=== PATIENT | female | born 1990 | race Caucasian/White ===

== ENCOUNTER 2020-10-18 13:22 | Emergency (ER) | payer OTHER, SELFPAY ==
[2020-10-18 13:45] VITALS: BP 104/65; PULSE 90; RESP 16; TEMP 36.3; O2SAT 100
--- NOTE | 2020-10-18 14:40 | ED.SKABFB ---
HPI - Skin/Abscess/Foreign Bdy General Chief complaint: Skin/Abscess/Foreign Body Stated complaint: Rash On Back Time Seen by Provider: 10/18/20 14:30 Source: patient and RN notes reviewed Mode of arrival: ambulatory Limitations: no limitations History of Present Illness HPI narrative: 30-year-old female presents concern with painful burning itchy rash to her left sided upper back. Reports symptoms started with pain 2 to 3 days ago and then the rash appeared. She denies any drainage from the area. She denies malaise,, fever, body aches. Denies intervention. Related Data Home Medications Medication Instructions Recorded Confirmed sumatriptan succinate [Imitrex] 100 mg PO ONCE 02/28/19 02/28/19 Allergies Allergy/AdvReac Type Severity Reaction Status Date / Time No Known Allergies Allergy Verified 02/28/19 13:56 Review of Systems Review of Systems: CONSTITUTIONAL: Denies malaise, chills, sweats, or fever. EYES: Denies visual changes, redness, or discharge. ENT: Denies rhinorrhea, congestion, sinus pain, otalgia or sore throat. CARDIOVASCULAR: Denies chest pain, palpitations, or edema. RESPIRATORY: Denies cough or dyspnea. SKIN: Denies rash or itching. MUSCULOSKELETAL: Denies myalgia. NEUROLOGIC: Denies numbness, weakness, or headache. All systems reviewed & are unremarkable except as noted in HPI and below PMFSH Past Medical History Medical History (Updated 10/18/20 @ 14:41 by Suyapa Garduno NP) Fibromyalgia Migraines Surgical History Surgical History (Updated 01/03/19 @ 21:45 by Claribel Goodwin) No history of previous surgery Social History Social History (Updated 01/03/19 @ 21:45 by Claribel Goodwin) Smoking status: Unknown if ever smoked Gender identity (if verbalized by the patient): Female Comments At time of signature, agree with nursing past medical, surgical, social and family history. There is no relevant family history pertinent to the presenting complaint Exam Narrative: GENERAL: Well-appearing, well-nourished, and in no acute distress. HEAD: Normocephalic, atraumatic. EYES: PERRLA, conjunctivae clear ENT: Mucous membranes moist. NECK: Supple. No lymphadenopathy CHEST: Speaks in full sentences no respiratory distress. HEART: Regular rate and rhythm. SKIN: Warm, dry. Zosteriform rash noted to the left upper back NEURO: Alert and oriented x3. PSYCH: Normal mood and affect Course Course Emergency Course: Patient is aware of diagnosis, understands and agrees to treatment plan. Anticipatory guidance given. Patient agrees to follow-up as directed and is aware of reasons to seek care at the emergency department. Portions of this record may have been created with voice recognition software Vital Signs Vital signs: Vital Signs Temperature 97.4 F L 10/18/20 13:45 Pulse Rate 90 10/18/20 13:45 Respiratory Rate 16 10/18/20 13:45 Blood Pressure 104/65 10/18/20 13:45 Pulse Oximetry 100 10/18/20 13:45 Temperature 97.4 F L 10/18/20 13:45 Pulse Rate 90 10/18/20 13:45 Respiratory Rate 16 10/18/20 13:45 Blood Pressure 104/65 10/18/20 13:45 Pulse Oximetry 100 10/18/20 13:45 Reviewed. MDM - Skin/Abscess/Foreign Bdy MDM Narrative Medical decision making narrative: Does not appear at this time to be erythema multiforme, bullous, SJS, TEN; no evidence at this time to suggest RMSF, endocarditis or Lyme disease; patient looks well, nontoxic and is tolerating oral intake; no neurologic signs or symptoms; no headache, photophobia or neck pain; afebrile; appropriate for initial outpatient treatment; discussed the importance of follow-up, patient agrees; question, viral exanthema, contact dermatitis, allergic dermatitis, eczema, urticaria, shingles. No soft palate or uvula edema, no tongue, lip edema or other mucosal involvement, no respiratory compromise, no stridor, no wheezing, no wheezing, no history of syncope, no hypotension, no nausea, vomiting, or diarrh
== END 2020-10-18 14:57 | disposition home or self-care (01) ==
PROVIDERS: Emergency Provider Nurse Practitioner; PCP Physician Assistant
DX: B02.9 Zoster without complications (principal)
CPT/HCPCS: 99213; G0463

== ENCOUNTER 2020-10-23 13:42 | Emergency (ER) | payer OTHER, SELFPAY ==
[2020-10-23 13:54] VITALS: BP 103/74; PULSE 75; RESP 16; TEMP 36.7; O2SAT 100
--- NOTE | 2020-10-23 14:47 | ED.GENADULT ---
HPI - General Adult General Chief complaint: Upper Respiratory Infection Stated complaint: sore throat Time Seen by Provider: 10/23/20 14:47 Source: patient and RN notes reviewed Mode of arrival: ambulatory Limitations: no limitations History of Present Illness HPI narrative: 30-year-old female presents with complaints of sore throat, cough, and congestion for 1 day. ?Ileana reports awakening with an increasing sore throat today. ?Ibuprofen today at 09:00 with little relief. ?No high fevers, drooling, neck or throat swelling. ?Pain is bilateral. Hurts to swallow. ?Exacerbation factors consist of eating and drinking. ?No rhinorrhea. ?Nasal congestion. ?No voice change. ?No nausea, vomiting, or abdominal pain. ?Tolerating liquids well. ?Denies chills, dyspnea, difficulty swallowing, jaw pain, dental pain, facial pain, foreign body sensation, and rash. ?No chest pain. ?LMP 10/03/20. ?Remains active. ?The patient reports she has not been diagnosed with COVID-19. The patient reports she is not waiting for the results of a COVID-19 lab test. ?The patient reports she does not have weakness, fatigue, or myalgia. The patient reports he does not have a worsening cough. ?The patient reports he does not have any loss of taste or smell and diarrhea. ?Denies recent traveling. ?Denies concerns for COVID-19 or exposures. ?At this time, the patient is not suspected of having COVID-19. Some parts of this dictation were generated by voice recognition software and may contain typographical and/or grammatical inaccuracies. Related Data Allergies Allergy/AdvReac Type Severity Reaction Status Date / Time No Known Allergies Allergy Verified 02/28/19 13:56 Review of Systems Review of Systems: CONSTITUTIONAL: Denies fever, chills, sweats. EYES: Denies visual changes, redness, discharge. ENT: Denies rhinorrhea, otalgia. Complains of sore throat, congestion. CARDIOVASCULAR: Denies chest pain, palpitations, edema. RESPIRATORY: Denies dyspnea, wheezing. Complaints of cough. GASTROINTESTINAL: Denies abdominal pain, nausea, vomiting, diarrhea. GENITOURINARY: Denies dysuria, hematuria, abnormal discharge. SKIN: Denies rash or itching. MUSCULOSKELETAL: Denies acute back pain, joint pain, or myalgia. NEUROLOGIC: Denies numbness or focal weakness. PSYCHIATRIC: Denies anxiety or depression. All systems reviewed & are unremarkable except as noted in HPI and below. [facility] Past Medical History Medical History Fibromyalgia Migraines Smoker Surgical History Surgical History (Updated 01/03/19 @ 21:45 by Claribel Goodwin) No history of previous surgery Family History Family History (Updated 10/24/20 @ 20:10 by JUANJO Shultz) Father Unknown family medical history Mother Alive and well Social History Social History (Updated 10/24/20 @ 20:11 by JUANJO Shultz) Years smoked: 1.5 Smoking status: Current every day smoker Tobacco type: cigarettes Second hand tobacco smoke exposure: No Alcohol intake: current Substance use: never Substance use type: does not use Living arrangements: with family Occupation/Education: occupation Gender identity (if verbalized by the patient): Female Sexual Orientation (if Verbalized by the Patient): Straight or Heterosexual Comments At time of signature, agree with the nurse past medical, surgical, social, and family history. There is no relevant family history pertinent to the presenting complaint. Exam Narrative: GENERAL: This is a well-nourished, well-developed patient, in no apparent distress. Speaks in full sentences without deficits and ambulates with steady gait without dyspnea. HEAD: Normocephalic, atraumatic. EYES: PERRL. Sclera clear/white. Vision is grossly intact. EARS: External ears normal, auditory canals clear and without drainage, RT TM normal without perforation. LT TM with moderate effusion, no erythema, bulging, tenderness, swelling, or drainage. Hearing myranda
== END 2020-10-23 15:18 | disposition home or self-care (01) ==
PROVIDERS: Emergency Provider Nurse Practitioner Family
DX: H74.8X2 Other specified disorders of left middle ear and mastoid (principal); J02.9 Acute pharyngitis, unspecified; F17.200 Nicotine dependence, unspecified, uncomplicated
CPT/HCPCS: 87081; 87880; 99213; G0463

== ENCOUNTER 2020-12-11 18:30 | Emergency (ER) | payer OTHER, SELFPAY ==
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
[2020-12-11 18:46] VITALS: BP 118/64; PULSE 98; RESP 17; TEMP 37.1; O2SAT 100
[2020-12-11] MEDS: IBUPROFEN 400 MG TABLET 800 MG PO (22:06)
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
[2020-12-11 23:40] VITALS: BP 116/62; PULSE 81; RESP 18; O2SAT 99
--- NOTE | 2020-12-12 00:58 | ECG_ITS ---
Measurements Intervals [place] Rate: 89 P: 71 MT: 134 QRS: 41 QRSD: 90 T: 55 QT: 349 QTc: 425 Interpretive Statements SINUS RHYTHM NORMAL ECG Electronically Signed On 12-12-2020 18:07:32 CDT by Leopoldo Medina D.O.
== END 2020-12-11 23:42 | disposition home or self-care (01) ==
PROVIDERS: Emergency Provider Emergency Medicine; PCP Physician Assistant
DX: S20.219A Contusion of unspecified front wall of thorax, initial encounter (principal); F17.210 Nicotine dependence, cigarettes, uncomplicated; V89.2XXA Person injured in unspecified motor-vehicle accident, traffic, initial encounter
CPT/HCPCS: 71046; 93005; 99283; A9270

== ENCOUNTER 2022-01-28 10:17 | Emergency (ER) | payer OTHER, SELFPAY ==
[2022-01-28 10:51] VITALS: BP 115/77; PULSE 81; RESP 18; TEMP 36.9; O2SAT 100
--- NOTE | 2022-01-28 11:42 | ED.URI ---
HPI - URI/Sore Throat General Chief Complaint: Upper Respiratory Infection Stated Complaint: Bodyaches, Headache, Vomiting Time Seen by Provider: 01/28/22 11:43 Source: patient and RN notes reviewed Mode of arrival: ambulatory Limitations: no limitations History of Present Illness HPI Narrative: 31-year-old fever presented for complaint of headache, body aches, sinus pressure/congestion, n/v, subjective fever/chills. Onset 3 days. Denies cough, sob, wheezing. Last emesis last night. Endorses sick contacts. Taking Tylenol and ibuprofen for symptoms. MD elicited complaint: cough Related Data Allergies Allergy/AdvReac Type Severity Reaction Status Date / Time No Known Allergies Allergy Verified 01/28/22 10:56 Review of Systems Review of Systems: ROS per HPI PMFSH Past Medical History Medical History Fibromyalgia Migraines Smoker Surgical History Surgical History No history of previous surgery Family History Family History Father Unknown family medical history Mother Alive and well Social History Social History Years smoked: 1.5 Smoking status: Current every day smoker Tobacco type: cigarettes Second hand tobacco smoke exposure: No Alcohol intake: current Substance use: never Substance use type: does not use Gender identity (if verbalized by the patient): Female Sexual Orientation (if Verbalized by the Patient): Straight or Heterosexual Exam Narrative: GENERAL: Ill-appearing, nontoxic EYES: PERRLA, conjunctivae clear ENT: Mucous membranes moist. TM pearly mccallum with dull light reflex bilaterally; no tragal tenderness. Oropharynx erythematous without lesions or exudate, no drooling, no hoarseness, no trismus, uvula midline. CHEST: Clear to auscultation, breath sounds equal. No wheezing, rhonchi, rales, or stridor HEART: Regular rate and rhythm. No murmur heard. SKIN: Warm, dry, no rash. NEURO: Alert and oriented x3. PSYCH: Normal mood and affect Course Course Emergency Course: Patient is aware of diagnosis, understands and agrees to treatment plan. Anticipatory guidance given. Patient agrees to follow-up as directed and is aware of reasons to seek care at the emergency department. Portions of this record may have been created with voice recognition software Level of Care: Express Care Visit Vital Signs Vital signs: Vital Signs Temperature 98.4 F 01/28/22 10:51 Pulse Rate 81 01/28/22 10:51 Respiratory Rate 18 01/28/22 10:51 Blood Pressure 115/77 01/28/22 10:51 Pulse Oximetry 100 01/28/22 10:51 Oxygen Delivery Room Air 01/28/22 10:51 Temperature 98.4 F 01/28/22 10:51 Pulse Rate 81 01/28/22 10:51 Respiratory Rate 18 01/28/22 10:51 Blood Pressure 115/77 01/28/22 10:51 Pulse Oximetry 100 01/28/22 10:51 Oxygen Delivery Room Air 01/28/22 10:51 reviewed MDM - URI/Sore Throat MDM Narrative Medical decision making narrative: flu positive, result reviewed with pt. Advised supportive measures and signs/symptoms to go to the ER. Pt is appropriate for outpt treatment and f/u. Differential Diagnosis Differential diagnosis: Likely upper respiratory infection, sinusitis and viral infection Discharge Plan Discharge Clinical Impression: Influenza Patient Disposition: Home, Self-Care Condition: Stable Instructions: Influenza (ED) Additional Instructions: Influenza positive You should avoid crowds until you are fever free for 24 hours without the use of fever reducing medications, or the symptoms are improved Rest. Drink plenty of fluids. Tylenol 1000mg every 8 hours as needed for pain/fever Recommend Flonase spray and Zyrtec (or Claritin/Lety) for sinus pressure/congestion over the counter Cough syrup may cause drowsiness; avoid driving or take it at
== END 2022-01-28 12:02 | disposition home or self-care (01) ==
PROVIDERS: Emergency Provider Nurse Practitioner Family; PCP Physician Assistant
DX: J11.1 Influenza due to unidentified influenza virus with other respiratory manifestations (principal); F17.210 Nicotine dependence, cigarettes, uncomplicated; Z20.822 Contact with and (suspected) exposure to COVID-19
CPT/HCPCS: 87426; 87804; 99213; C9803; G0463

== ENCOUNTER 2022-03-25 15:21 | Emergency (ER) | payer OTHER, SELFPAY ==
[2022-03-25 15:27] VITALS: BP 114/71; PULSE 80; RESP 18; TEMP 36.6; O2SAT 100
--- NOTE | 2022-03-25 15:33 | ED.URI ---
HPI - URI/Sore Throat General Chief Complaint: Upper Respiratory Infection Stated Complaint: Sore Throat Time Seen by Provider: 03/25/22 15:33 Source: patient Mode of arrival: ambulatory Limitations: no limitations History of Present Illness HPI Narrative: 31-year-old female presents with complaint of sore throat for 2 days. No other symptoms. Afebrile. Denies nausea vomiting diarrhea. All systems reviewed and negative except as noted above. Related Data Home Medications Medication Instructions Recorded Confirmed No Home Medications 03/25/22 03/25/22 Allergies Allergy/AdvReac Type Severity Reaction Status Date / Time No Known Allergies Allergy Verified 03/25/22 15:26 Review of Systems Review of Systems: CONSTITUTIONAL: Denies fever, chills, or sweats. EYES: Denies visual changes, redness, or discharge. ENT: Denies rhinorrhea, congestion . Reports sore throat. Denies otalgia. CARDIOVASCULAR: Denies chest pain, palpitations, or edema. RESPIRATORY: Denies cough or dyspnea. GASTROINTESTINAL: Denies abdominal pain, nausea, vomiting, or diarrhea. GENITOURINARY: Denies dysuria or hematuria. SKIN: Denies rash or itching. MUSCULOSKELETAL: Denies back pain, joint pain, or myalgia. NEUROLOGIC: Denies headache, numbness, or weakness. PSYCHIATRIC: Denies anxiety or depression. All other systems reviewed are negative, except as documented in HPI. [facility] Past Medical History Medical History Fibromyalgia Migraines Smoker Surgical History Surgical History No history of previous surgery Family History Family History Father Unknown family medical history Mother Alive and well Social History Social History Years smoked: 1.5 Smoking status: Current every day smoker Tobacco type: cigarettes Second hand tobacco smoke exposure: No Alcohol intake: current Substance use: never Substance use type: does not use Living arrangements: with family Occupation/Education: occupation Gender identity (if verbalized by the patient): Female Sexual Orientation (if Verbalized by the Patient): Straight or Heterosexual Comments At time of signature, agree with nursing past medical, surgical, social and family history. There is no relevant family history pertinent to the presenting complaint. Exam Narrative: GENERAL: This is a well-nourished, well-developed patient, in no apparent distress. HEAD: normocephalic, atraumatic. EYES: PERRL. Sclera clear/white. Vision is grossly intact. EARS: External ears normal, auditory canals clear and without drainage, TMs normal without perforation. Hearing grossly intact. NOSE: External nose normal with no obvious nasal discharge, nares without redness, no rhinorrhea. THROAT: Mucous membranes moist, posterior pharynx clear. NECK: Neck supple, non-tender without lymphadenopathy, masses or thyromegaly. CARDIOVASCULAR: Regular rate and rhythm without murmurs, gallops, or rubs. RESPIRATORY: Clear to auscultation. Breath sounds equal bilaterally. No wheezes, rales, or rhonchi. SKIN: warm, Dry, intact with no suspicious lesions or rash, good texture and turgor. NEURO: awake, alert, and oriented to person, place and time. There were no obvious focal neurologic abnormalities. EXTREMITIES: No joint tenderness, effusion, or edema noted. Course Course Level of Care: Express Care Visit Vital Signs Vital signs: Vital Signs Temperature 36.6 C 03/25/22 15:27 Pulse Rate 80 03/25/22 15:27 Respiratory Rate 18 03/25/22 15:27 Blood Pressure 114/71 03/25/22 15:27 Pulse Oximetry 100 03/25/22 15:27 Oxygen Delivery Room Air 03/25/22 15:27 Temperature 36.6 C 03/25/22 15:27 Pulse Rate 80 03/25/22 15:27 Respiratory Rate 18 03/25/22 15:27 Blood Pressure 114/71 03/25/22 15:27 Pul
== END 2022-03-25 16:03 | disposition home or self-care (01) ==
PROVIDERS: Emergency Provider Nurse Practitioner Family; PCP Physician Assistant
DX: J02.9 Acute pharyngitis, unspecified (principal); Z20.822 Contact with and (suspected) exposure to COVID-19; F17.210 Nicotine dependence, cigarettes, uncomplicated; M79.7 Fibromyalgia
CPT/HCPCS: 87081; 87426; 87880; 99213; C9803; G0463

== ENCOUNTER 2022-06-23 16:57 | Emergency (ER) | payer OTHER, SELFPAY ==
[2022-06-23 17:09] VITALS: BP 112/66; PULSE 88; RESP 16; TEMP 37.4; O2SAT 99
--- NOTE | 2022-06-23 17:18 | ED.URI ---
HPI - URI/Sore Throat General Chief Complaint: Upper Respiratory Infection Stated Complaint: Sore Throat/Headache Time Seen by Provider: 06/23/22 17:18 Source: patient Mode of arrival: ambulatory Limitations: no limitations History of Present Illness HPI Narrative: Patient is a 31-year-old female that presents with 3 days of congestion, headache, sore throat, cough, diarrhea. Has not taken anything for symptoms. Does not have any sick contacts. Denies any fever, ear pain, shortness of breath, nausea and vomiting. Related Data Allergies Allergy/AdvReac Type Severity Reaction Status Date / Time No Known Allergies Allergy Verified 06/23/22 17:27 Review of Systems Review of Systems: All systems reviewed & are unremarkable except as noted in HPI and below Constitutional: Constitutional: Denies body ache(s), Denies fever(s), Denies malaise and Denies weakness Eyes: Eyes: Denies loss of vision ENT: Denies otalgia, Reports headache(s), Reports nasal congestion, Denies sinus pain and Reports sore throat Cardiovascular: Cardiovascular: Denies chest pain, Denies irregular heart rhythm and Denies dyspnea Respiratory: Respiratory: Reports cough and Denies dyspnea Gastrointestinal: Gastrointestinal: Denies abdominal pain, Denies melena, Denies hematochezia, Denies diarrhea, Denies nausea and Denies vomiting Musculoskeletal: Musculoskeletal: Denies back pain, Denies myalgias and Denies arthralgias Integumentary/Breasts: Skin/Breast: Denies pruritus and Denies rash Neurologic: Denies headache(s), Denies loss of vision and Denies weakness Psychiatric: Psychiatric: Reports no additional psychiatric complaints [facility] Past Medical History Medical History Fibromyalgia Migraines Smoker Surgical History Surgical History No history of previous surgery Family History Family History Father Unknown family medical history Mother Alive and well Social History Social History Years smoked: 1.5 Smoking status: Current every day smoker Tobacco type: cigarettes Second hand tobacco smoke exposure: No Alcohol intake: current Substance use: never Substance use type: does not use Living arrangements: with family Occupation/Education: occupation Gender identity (if verbalized by the patient): Female Sexual Orientation (if Verbalized by the Patient): Straight or Heterosexual Comments At time of signature, agree with nursing past medical, surgical, social and family history. There is no relevant family history pertinent to the presenting complaint. Exam Const: General: cooperative, healthy appearing, comfortable, no acute distress and well nourished Nutritional Appearance: well nourished Orientation/consciousness: patient oriented x3 Limitations: no limitations HENMT: Head: normal to inspection, normocephalic and atraumatic Ears: external ears normal and TM's normal bilaterally Face/Nose/Sinus: Normal external nose present, normal facial exam, sinuses nontender and face symmetric Face and sinus: normal facial exam, sinuses nontender and face symmetric Mouth: Yes Normal oral and palatal mucosa present, Yes lip normal and Yes moist mucous membranes Teeth and gingiva: dentition normal Throat: posterior oropharynx normal, uvula midline, abnormal tonsil bilateral erythema and hypertrophy 2+ and postnasal drainage Eyes: General: appearance normal, both eyes and all related structures Alignment and Position: alignment normal and position normal Periorbital: periorbital findings normal Eyelids: eyelids normal Pupils: Equal, round and reactive pupils present Neck: Neck: normal visual inspection, full ROM and supple Chest: Chest palpation & inspection: normal inspection of the chest and normal palpation of entire chest wall Resp: Effort & I
== END 2022-06-23 18:13 | disposition home or self-care (01) ==
PROVIDERS: Emergency Provider Nurse Practitioner Family; PCP Physician Assistant
DX: J06.9 Acute upper respiratory infection, unspecified (principal); R05.9 Cough, unspecified; F17.210 Nicotine dependence, cigarettes, uncomplicated; M79.7 Fibromyalgia
CPT/HCPCS: 87081; 87880; 99213; G0463

== ENCOUNTER 2022-09-16 13:10 | Outpatient (CLI) | payer OTHER, SELFPAY ==
--- NOTE | ~2022-09-16 | XR_ITS ---
EXAMINATION: XR knee LT 3V DATE: 09/16/2022 13:31 INDICATION: Left knee pain. TECHNIQUE: 3 views of left knee were obtained. COMPARISON: None. FINDINGS: Bone alignment is normal. No fracture. Joint spaces are well maintained. There is no knee j oint effusion. IMPRESSION: 1. Normal left knee. Reviewed, dictated and finalized at location E. IMPRESSION: 1. Normal left knee.
--- NOTE | ~2022-09-16 | XR_ITS ---
EXAMINATION: XR knee RT 3V DATE: 09/16/2022 13:31 INDICATION: Right knee pain. TECHNIQUE: 3 views of right knee were obtained. COMPARISON: None. FINDINGS: Bone alignment is normal. No fracture. Joint spaces are well maintained. There is no knee j oint effusion. IMPRESSION: 1. Normal right knee. Reviewed, dictated and finalized at location E. IMPRESSION: 1. Normal right knee.
== END 2022-09-16 13:11 | disposition home or self-care (01) ==
PROVIDERS: PCP Physician Assistant; Visit Provider Physician Assistant
DX: M25.561 Pain in right knee (principal); M25.562 Pain in left knee
CPT/HCPCS: 73562

== ENCOUNTER 2022-10-13 06:56 | Outpatient (CLI) | payer OTHER, SELFPAY ==
--- NOTE | ~2022-10-13 | XR_ITS ---
AP view of the pelvis and AP and lateral views of the bilateral hips Clinical history: Pain Findings: No acute fracture or dislocation is seen. Osseous alignment is anatomic. Bilateral hip and SI joint spaces are preserved. Soft tissues are unremarkable. Impression: No significant abnormality is seen. Reviewed, dictated and finalized at location . Impression: No significant abnormality is seen.
== END 2022-10-13 06:57 | disposition home or self-care (01) ==
PROVIDERS: PCP Physician Assistant; Visit Provider Physician Assistant
DX: R22.42 Localized swelling, mass and lump, left lower limb (principal); M25.551 Pain in right hip; M25.552 Pain in left hip
CPT/HCPCS: 73521

== ENCOUNTER 2022-11-15 13:51 | Outpatient (CLI) | payer OTHER, SELFPAY ==
--- NOTE | ~2022-11-15 | US_ITS ---
EXAMINATION: US soft tissue LE LT DATE: 11/15/2022 14:20 INDICATION: Mass of subcutaneous tissue of left lower limb. TECHNIQUE: Multiple grayscale and Doppler ultrasound images of the left lower limb were obtained. COMPARISON: None FINDINGS: There is no abnormal mass in the patient's area of concern in distal left thigh. IMPRESSION: 1. No abnormal mass in the patient's area of concern in distal left thigh. Reviewed, dictated and finalized at location A.
== END 2022-11-15 13:52 | disposition home or self-care (01) ==
PROVIDERS: PCP Physician Assistant; Visit Provider Physician Assistant
DX: R22.42 Localized swelling, mass and lump, left lower limb (principal)
CPT/HCPCS: 76882

== ENCOUNTER 2023-03-02 17:56 | Emergency (ER) | payer OTHER, SELFPAY ==
[2023-03-02 18:14] VITALS: BP 117/74; PULSE 76; RESP 16; TEMP 36.8; O2SAT 100
--- NOTE | 2023-03-02 18:34 | ED.URI ---
HPI - URI/Sore Throat General Chief Complaint: Upper Respiratory Infection Stated Complaint: cough,throat sore,diarrhea,runny nose Source: patient Mode of arrival: ambulatory Limitations: no limitations History of Present Illness HPI Narrative: 32 y/o female presented for 10 days of cough, nasal drainage, CAMPBELL, dry throat, diarrhea intermittently. Taking Cough drops for symptoms. denies shortness of breath, wheezing, nausea, vomiting, fever or lethargy. Related Data Home Medications Medication Instructions Recorded Confirmed propranolol 80 mg capsule,24 80 mg PO DAILY 03/02/23 03/02/23 hr,extended release sumatriptan succinate 50 mg tablet 50 mg PO DAILY 03/02/23 03/02/23 Allergies Allergy/AdvReac Type Severity Reaction Status Date / Time No Known Allergies Allergy Verified 03/02/23 18:06 Review of Systems Review of Systems: ROS per HPI All systems reviewed & are unremarkable except as noted in HPI and below PMFSH Past Medical History Medical History Fibromyalgia Migraines Smoker Surgical History Surgical History No history of previous surgery Family History Family History Father Unknown family medical history Mother Alive and well Social History Social History Years smoked: 1.5 Smoking status: Current every day smoker Tobacco type: cigarettes Second hand tobacco smoke exposure: No Alcohol intake: current Substance use: never Substance use type: does not use Living arrangements: with family Occupation/Education: occupation Gender identity (if verbalized by the patient): Female Sexual Orientation (if Verbalized by the Patient): Straight or Heterosexual Comments At time of signature, I have reviewed and agree with nursing past medical, surgical, social and family history unless otherwise noted. Please see nursing chart for further information. There is no relevant family history pertinent to the presenting complaint Exam Narrative: GENERAL: Well-appearing EYES: EOMI. No redness or drainage. Conjunctivae normal. ENT: Mucous membranes pink and moist. No rhinorrhea. TMs normal bilaterally. Throat normal. Uvula midline. NECK: Normal AROM. Supple. CHEST: No respiratory distress. Lungs clear to all cunningham. HEART: Regular rate and rhythm. No murmur appreciated. ABDOMEN: Soft, nontender, nondistended, normal active bowel sounds. EXTREMITIES: Normal range of motion. No edema. SKIN: Warm, dry, no rash. Capillary refill normal. Normal skin turgor. NEURO: Alert and oriented x3. Gait steady. PSYCH: Normal affect. Course Course Emergency Course: Patient is aware of diagnosis, understands and agrees to treatment plan. Anticipatory guidance given. Patient agrees to follow-up as directed and is aware of reasons to seek care at the emergency department. Portions of this record may have been created with voice recognition software Level of Care: Express Care Visit Vital Signs Vital signs: Vital Signs Temperature 98.2 F 03/02/23 18:14 Pulse Rate 76 03/02/23 18:14 Respiratory Rate 16 03/02/23 18:14 Blood Pressure 117/74 03/02/23 18:14 Pulse Oximetry 100 03/02/23 18:14 Oxygen Delivery Room Air 03/02/23 18:14 Temperature 98.2 F 03/02/23 18:14 Pulse Rate 76 03/02/23 18:14 Respiratory Rate 16 03/02/23 18:14 Blood Pressure 117/74 03/02/23 18:14 Pulse Oximetry 100 03/02/23 18:14 Oxygen Delivery Room Air 03/02/23 18:14 MDM - URI/Sore Throat MDM Narrative Medical decision making narrative: Discussed physical exam findings consistent with bronchitis. Advised supportive measures and signs/symptoms to go to the ER. Pt is appropriate for outpt treatment and f/u. Differential Diagnosis Differential diagnosis: Likely upper respiratory infecti
== END 2023-03-02 18:51 | disposition home or self-care (01) ==
PROVIDERS: Emergency Provider Nurse Practitioner Family; PCP Physician Assistant
DX: J40 Bronchitis, not specified as acute or chronic (principal); F17.210 Nicotine dependence, cigarettes, uncomplicated; M79.7 Fibromyalgia
CPT/HCPCS: 99213; G0463

== ENCOUNTER 2023-08-19 17:50 | Emergency (ER) | payer OTHER, SELFPAY ==
--- NOTE | 2023-08-19 17:55 | ED.URI ---
HPI - URI/Sore Throat General Chief Complaint: Upper Respiratory Infection Stated Complaint: nose running,sore throat Time Seen by Provider: 08/19/23 18:13 Source: patient and RN notes reviewed Mode of arrival: ambulatory Limitations: no limitations History of Present Illness HPI Narrative: 32-year-old female presents with concern for sore throat, runny nose. She reports symptoms started yesterday. She reports exposure to strep throat last week. She denies fever, body aches, chills, sweats. MD elicited complaint: sore throat Related Data Allergies Allergy/AdvReac Type Severity Reaction Status Date / Time No Known Allergies Allergy Verified 08/19/23 17:55 Review of Systems Review of Systems: CONSTITUTIONAL: Denies malaise, chills, sweats, or fever. EYES: Denies visual changes, redness, or discharge. ENT: Reports rhinorrhea, congestion, and sore throat. CARDIOVASCULAR: Denies chest pain, palpitations, or edema. RESPIRATORY: Reports cough. Denies dyspnea. GASTROINTESTINAL: Denies abdominal pain, nausea, vomiting, diarrhea SKIN: Denies rash or itching. MUSCULOSKELETAL: Denies myalgia. NEUROLOGIC: Denies headache. All systems reviewed & are unremarkable except as noted in HPI and below PMFSH Past Medical History Medical History Fibromyalgia Migraines Smoker Surgical History Surgical History No history of previous surgery Family History Family History Father Unknown family medical history Mother Alive and well Social History Social History Years smoked: 1.5 Smoking status: Current every day smoker Tobacco type: cigarettes Second hand tobacco smoke exposure: No Alcohol intake: current Substance use: never Substance use type: does not use Living arrangements: with family Occupation/Education: occupation Gender identity (if verbalized by the patient): Female Sexual Orientation (if Verbalized by the Patient): Straight or Heterosexual Comments At time of signature, agree with nursing past medical, surgical, social and family history. There is no relevant family history pertinent to the presenting complaint Exam Narrative: GENERAL: Well-appearing, well-nourished, and in no acute distress. HEAD: Normocephalic EYES: PERRLA, conjunctivae clear ENT: Nares clear. Mucous membranes moist. TM pearly mccallum with sharp light reflex bilaterally; no tragal tenderness. Oropharynx not erythematous without lesions. Tonsils not enlarged and without exudate, no drooling, no hoarseness, no trismus, uvula midline. NECK: Supple. No lymphadenopathy CHEST: Clear to auscultation, breath sounds equal. No wheezing, rhonchi, rales, or stridor. No respiratory distress, speaks in full sentences. HEART: Regular rate and rhythm. No murmur heard. SKIN: Warm, dry, no rash. NEURO: Alert and oriented x3. PSYCH: Normal mood and affect Course Course Emergency Course: Patient is aware of diagnosis, understands and agrees to treatment plan. Anticipatory guidance given. Patient agrees to follow-up as directed and is aware of reasons to seek care at the emergency department. Portions of this record may have been created with voice recognition software Level of Care: Express Care Visit Vital Signs Vital signs: Reviewed. MDM - URI/Sore Throat MDM Narrative Medical decision making narrative: Differential diagnosis considered: Costa virus, strep pharyngitis, allergic rhinitis, upper respiratory tract infection, sinusitis, rhinosinusitis, nasopharyngitis. viral pharyngitis, otitis media, otitis externa, pneumonia, bronchitis, viral cough syndrome, viral syndrome, and influenza. Exam findings show no acute concerns or changes; patient is non-toxic appearing and is in no distress. Patient is appropriate for outpatient treatment and follow-up. Lab Data
[2023-08-19 17:58] VITALS: BP 130/81; PULSE 92; RESP 16; TEMP 37.2; O2SAT 99
== END 2023-08-19 18:21 | disposition home or self-care (01) ==
PROVIDERS: Emergency Provider Nurse Practitioner; PCP Physician Assistant
DX: J06.9 Acute upper respiratory infection, unspecified (principal); F17.210 Nicotine dependence, cigarettes, uncomplicated; M79.7 Fibromyalgia
CPT/HCPCS: 87081; 87880; 99213; G0463

== ENCOUNTER 2024-03-07 00:09 | Day surgery (SDC) | payer OTHER, SELFPAY ==
[2024-03-06 14:33] VITALS: BMI 23.4
--- NOTE | 2024-03-06 14:39 | PC.NURSE ---
Report to the Outpatient Waiting Room, entrance under the green pavilion located off [facility], at time _1130_ on date _[id number]_. Planned Procedure Time: _130pm_.? Time changes happen often and if your time is changed the preop area will call you the afternoon before. - You and your visitor will be asked to self-screen and do not enter if you have any COVID symptoms. Please call surgeon if you need to reschedule. - A mask is optional within the hospital at this time. Patients may have clear liquids (water, carbonated beverages, clear teas, apple juice) until 3 hours prior to surgery with a maximum of 20 ounces. - No food from midnight until time of surgery and no smoking. This includes no chewing gum, candy or mints. Take only the following medications with a SIP of water on the morning of surgery: ___None DO NOT STOP ANY OF YOUR OTHER PRESCRIPTION MEDICATIONS PRIOR TO SURGERY EXCEPT THE FOLLOWING Medications to discontinue per physician None Date to take last dose Please no make-up, nail guatemalan, hairspray, perfume, deodorant, or body powder the day of surgery.? No jewelry (including any body piercings) or valuables the day of surgery, leave them at home.? Please take a shower or bath the night before, or the morning of, surgery with an antibacterial soap.? Wear comfortable, loose fitting clothing.? - Jewelry must be removed prior to entering the operating room.? Rings and piercings that are not removed may be cut off. - The hospital will not accept responsibility for valuables.? - Please leave all valuables, including medications, at home the day of surgery. If you are going home after surgery, a licensed entry driver operator must drive you home.? - NO public transportation without another adult if you receive anesthesia. - We recommend that an adult stay with you for 24 hours following discharge. - We also recommend that you do not drive, make important decision, drink alcoholic beverages, or take any drugs that were not prescribed by your health care provider for at least 24 hours after your discharge time. Follow any additional instructions given to you from your surgeon. Telephone instructions given to ___Ileana__and asked if any additional questions and then verbalized understanding. Patient advised to call surgeon office or pre surgery nurse liaison [phone] if any additional questions.
--- NOTE | 2024-03-07 06:43 | PM.IMHP ---
H&P: HPI History of Present Illness Date/Time: 03/07/24 06:43 Chief Complaint: First trimester missed A/B Narrative: 33-year-old 3 para 2 first-trimester a with a nonviable . She was seen 4 weeks ago with heart tones present 4 weeks later she had ultrasound essentially no growth and no heart rate. She is admitted for suction dilatation curettage and risks and benefits reviewed Review of Systems Review of Systems: CONSTITUTIONAL: Denies malaise, chills, sweats, or fever. EYES: Denies visual changes, redness, or discharge. ENT: Reports rhinorrhea, congestion, and sore throat. CARDIOVASCULAR: Denies chest pain, palpitations, or edema. RESPIRATORY: Reports cough. Denies dyspnea. GASTROINTESTINAL: Denies abdominal pain, nausea, vomiting, diarrhea SKIN: Denies rash or itching. MUSCULOSKELETAL: Denies myalgia. NEUROLOGIC: Denies headache. All systems reviewed & are unremarkable except as noted in HPI and below PMFSH Past Medical History Medical History Smoker Migraines Fibromyalgia Surgical History Surgical History No history of previous surgery Family History Family History Father Unknown family medical history Mother Alive and well Social History Social History Years smoked: 1.5 Smoking status: Former smoker Tobacco type: cigarettes Second hand tobacco smoke exposure: No Smoking end date: 08/05/23 Additional smoking assessment comments: Smoked off and on. Alcohol intake: current Substance use: never Substance use type: does not use Living arrangements: with family Occupation/Education: occupation Gender identity (if verbalized by the patient): Female Sexual Orientation (if Verbalized by the Patient): Straight or Heterosexual Spiritual care concerns: No Meds Home Medications and Allergies Home Medications ?Medication ?Instructions ?Recorded ?Confirmed ?Type No Home Medications 03/06/24 03/06/24 History Allergies Allergy/AdvReac Type Severity Reaction Status Date / Time No Known Allergies Allergy Verified 03/06/24 14:33 Exam Const: General: cooperative, healthy appearing and comfortable Nutritional Appearance: average body habitus Orientation/consciousness: oriented to person, oriented to place and oriented to time Resp: Effort & Inspection: normal respiratory effort Cardio: Rate: regular rate Rhythm: regular rhythm Heart sounds: S1 normal heart sound present and S2 normal heart sound present GI: Inspection: normal to inspection : External Female Exam: normal external appearance Speculum Exam - Cervix: normal appearance of the cervix Bimanual exam- vagina & uterus: enlarged Bimanual Exam- Adnexa, other: no masses Assessment and Plan Assessment and plan (1) Missed : Code(s): O02.1 - Missed Status: Acute Plan Proceed with suction dilatation curettage
--- NOTE | 2024-03-07 07:21 | P.PNAN_ITS ---
Anes - Initial Pre Proc Eval Procedure: Operation Date: 03/07/24 13:30 Proposed Procedures p Suction Dilation and Curettage - Prince Burch MD Date/Time: 03/07/24 07:21 Surgeon: Prince Burch MD Pre Op Diagnosis: missed ab Patient Data Age: 33 Gender: F Height: 1.57 m Weight: 58.2 kg Allergies Allergy/AdvReac Type Severity Reaction Status Date / Time No Known Allergies Allergy Verified 03/06/24 14:33 Home Medications ?Medication ?Instructions ?Recorded ?Confirmed ?Type hydrocodone 5 mg-acetaminophen 325 1 tablet PO Q4H PRN pain #14 tabs 03/07/24 Rx mg tablet Patient hx anesthesia problems: none Family hx anesthesia problems: none Results Review: All pre-operative results and documents have been reviewed as part of the pre- operative evaluation. [facility] Past Medical History Medical History Smoker Migraines Fibromyalgia Surgical History Surgical History No history of previous surgery Family History Family History Father Unknown family medical history Mother Alive and well Social History Social History Years smoked: 1.5 Smoking status: Former smoker Tobacco type: cigarettes Second hand tobacco smoke exposure: No Smoking end date: 08/05/23 Additional smoking assessment comments: Smoked off and on. Alcohol intake: current Substance use: never Substance use type: does not use Living arrangements: with family Occupation/Education: occupation Gender identity (if verbalized by the patient): Female Sexual Orientation (if Verbalized by the Patient): Straight or Heterosexual Spiritual care concerns: No Anes - Eval Final PreProcedure Day of Procedure 03/07/24 07:21 Patient weight: normal Heart: regular rate and rhythm Lungs: clear to auscultation and normal air movement Airway: Mallampati scale class II Neurological: alert and oriented Last oral intake: >/= 8 hours ASA classification: II Emergent: no Anesthetic plan: proceed Anesthesia type and monitoring: general GIVS and standard monitoring Results Review: All pre-operative results and documents have been reviewed as part of the pre- operative evaluation. Informed Consent: The patient's anesthetic plan and its attendant risks and benefits were discussed with the patient/family/POA. Questions were solicited and answers provided to the satisfaction of the patient/family/POA.
[2024-03-07 12:00] VITALS: BP 109/72; PULSE 91; RESP 16; TEMP 36.3; O2SAT 100
[2024-03-07 12:14] LABS: Hematocrit 37.5 % (37.0-47.0); Hemoglobin 12.3 g/dL (12.0-15.0)
[2024-03-07] MEDS: LACTATED RINGERS 1,000 ML 30 ML IV CONT (12:30)
[2024-03-07] MEDS: ACETAMINOPHEN 500 MG TABLET 1000 MG PO (12:30)
[2024-03-07] MEDS: LIDOCAINE 1% LOCAL INJ 10 ML VIAL INFILTRATE (13:21)
[2024-03-07 13:33] VITALS: BP 121/78; PULSE 102; RESP 14; O2SAT 100
--- NOTE | 2024-03-07 13:33 | W.PM.PROC2 ---
Procedure Note - Detailed Date of Procedure 03/07/24 Pre-op Diagnosis missed ab Post-op Diagnosis Same Procedure Performed Suction dilatation curettage Surgeon Prince Burch MD Anesthesia MAC and Local Indications Since 33-year-old with the 1st trimester missed A/B Findings Uterus sounded 10cm tissue consistent products of conception Description of Procedure Patient was prepped draped in normal sterile fashion placed in the dorsal lithotomy position. Under excellent IV sedation weighted speculum placed in posterior fornix vagina. Anterior lip of the cervix grasped with single-tooth tenaculum. 2.5cc 1% xylocaine anesthesia placed at 2, 4, 8, 10:00 a.m. of the cervix. Uterus sounded to 10cm. Serial dilatation with fragmented dilators performed followed by passage of the 10. Suction curette. When a good grating sound was heard the instruments withdrawn. The patient went to recovery in satisfactory condition. All sponge, needle, instrument counts were correct. There were no immediate complications. Estimated Blood Loss 25 Drains No Packing No Pathology Yes Complications No immediate complications Condition Stable Disposition PACU
[2024-03-07 14:03] VITALS: BP 124/93; PULSE 101; RESP 16
[2024-03-07 14:21] VITALS: BP 114/79; PULSE 73; RESP 16
== END 2024-03-07 14:23 | disposition home or self-care (01) ==
PROVIDERS: PCP Physician Assistant; Visit Provider Obstetrics & Gynecology
PROC: (CPT 59820; principal; 2024-03-07 13:30)
DX: O02.1 Missed abortion (principal); Z79.891 Long term (current) use of opiate analgesic; Z87.891 Personal history of nicotine dependence
CPT/HCPCS: 59820; 36415; 85014; 85018; 85461; 86850; 86900; 86901; 88305; A9270; J1100; J2003; J2250; J2405; J2704; J3010; J7120

== ENCOUNTER 2024-04-21 22:27 | Emergency (ER) | payer OTHER, SELFPAY ==
--- NOTE | ~2024-04-21 | XR_ITS ---
EXAM: XR wrist LT min 3V DATE: 04/21/2024 22:43 HISTORY: deformity . COMPARISON: None available. FINDINGS: Normal mineralization. Predominantly transverse nondisplaced distal left radial fracture, with extension of fracture lines to the radiocarpal joint space. Minimally displaced ulnar styloid fr acture. No lytic or blastic lesion. Joint spaces are maintained. No erosion or periosteal change. Sof t tissue swelling about the wrist. IMPRESSION: Mildly comminuted nondisplaced intra-articular distal left radial fracture. Minimally dis placed left ulnar styloid fracture. Reviewed, dictated and finalized at location [facility]. [facility] IMPRESSION: Mildly comminuted nondisplaced intra-articular distal left radial f racture. Minimally displaced left ulnar styloid fracture.
--- OUTSIDE RECORDS SUMMARY | 2024-04-21 22:30 | XMS_ITS | Data Portability ---
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 Patient will come back in a year unless there are new symptoms. [email or web address] Not available 06/14/2022 12:39:48 Plan of Treatment Reminders Order Date Submit Date Provider Last Modified By Organization Details Last Modified Time Details Appointments None recorded. Lab test, urine 2023 024 [email or web address] [facility], [address], [address], [place], [address], 4 11:15:59 Referral None recorded. Procedures None recorded. Surgeries None recorded. Imaging None recorded. Medication Orders Valtrex 1 gram tablet 2023 024 donato [id number], [address], [place], [place], [id number], 4 14:11:19 Depo-Counseling Director a 150 mg/mL intramuscul ar suspension 2022 023 [email or web address] [facility] #[id number], [address], [place], [place], [id number], 4 11:03:54 Junel Fe 24 1 mg-20 mcg (24)/75 mg (4) tablet 2022 023 [email or web address] [facility] #[id number], [address], [place], [place], [id number], 4 11:03:56 Patient TargetsNo targets recorded. Patient InstructionsNo instructions recorded. Reason for Referral None Reported. Results Created Date Observation Date Name Description Value Unit Range Abnormal Flag Note LastModifiedBy Organization Detail LastModifiedTime 06/15/19 23 06/14/2022 IMAGE GUIDE D PAP AND HPV REGAR DLESS image guided Pap, HPV regardless of Pap result SEE RESULT S BELOW CASE REPOR T: Cytol ogy Gynec ologi farhan Repor t Case: [id number] Autho gilma sanchez Provi melinda: Jesus Mahan Colle cted: 06/14 1401 DATA CONTROL CLERK Order ing Locat ion: [place] [facility] Recei melly: 06/15 1016 First Scree n: Ricci Johnson ed, CT Speci men: Scree dileep Pap - Image d, Cervi x STATE MENT OF ADEQU ACY: Satis facto ry for evalu ation Trans forma tion zone compo nent prese nt FINAL DIAGN OSIS: Negat juwan for Intra epith elial Char santiago or Oneida aldana (NIL) . Lamar basurto freya d by Ricci Johnson ed, CT on 2022 at 3:03 PM ----- ----- ----- ----- ----- ----- ----- ----- ----- ----- ----- ----- ----- ----- ----- ----- ----- ---- HPV RESUL TS: HPV mRNA E6/E7 : No HPV mRNA Detec eben NOTE: This high risk HPV mRNA assay detec ts fourt een high- risk HPV types (16, 18, 31, 33, 35, 39, 45, 51, 52, 56, 58, 59, 66, 68) witho ut diffe renti ation . COMME NT: This speci men was revie wed by a Cytot echno logis t and/o r Patho logis t (as indic ated in this repor t) after evalu ation using the Thinp rep Imagi ng Syste m. CLINI FARHAN INFOR MATIO N: Menst rual Statu s: LMP (if appli cable ): Clini farhan Histo ry/Pr eviou s Pap: Type of Neopl mihir (if appli cable ): Signi fican t Clini farhan Findi ngs: Other Histo ry: Hormo em (if appli cable ): PAP EDUCA RU L NOTE: The Pap Test is a scree dileep test with an inher ent false negat juwan rate. Liqui d-bas ed sampl ing may decre ase, but will not elimi seema, false negat juwan resul ts. A negat juwan resul t does not precl ude the prese nce and/o r devel opmen t of disea se, since the prese nce of abnor mal cells in the sampl e depen ds on the locat ion of the lesio n and sampl ing techn ique. [place] nued regul ar scree dileep is the best metho d of cance r preve ntion . If repor eben cytol ogic findi ng do not corre late with physi farhan and/o r histo rical findi ngs, furth er inves tigat ion is recom talita d, as clini olive valencia nted. Not Available [facility] (Lab) [address] , [place], [address], 06/17/2022 16:05:38 06/15/19 23 06/14/2022 TRICH OMONA S VAGIN DAVID (RRNA ) trichomonas vaginalis ribosomal RNA (rrna) Negati ve negati ve Not Available [facility] (Lab) [address], [place], [address], 06/17/2022 16:05:38 06/15/19 23 06/14/2022 CT/GC (IDA) , THINP REP VIAL chlamydia trachomatis, PCR Negati ve negati ve Not Available [facility] (Lab) [address], [place], [address], 06/17/2022 16:05:39 06/15/19 23 06/14/2022 CT/GC (IDA) , THINP REP VIAL neisseria gonorrhoeae, PCR Negati ve negati ve Not Available [facility] (Lab) [address], [place], [address], 06/17/2022 16:05:39 08/25/19 23 08/24/2022 CT/GC AND TRICH OMONA S VAGIN DAVID (RRNA ), SWAB chlamydia trachomatis, PCR Negati ve negati ve Not Available [facility] (Lab) [address], [place], [address], 08/25/2022 15:50:03 08/25/19 23 08/24/2022 CT/GC AND TRICH OMONA S VAGIN DAVID (RRNA ), SWAB neisseria gonorrhoeae, PCR Negati ve negati ve Not Available [facility] (Lab) [address], [place], [address], 08/25/2022 15:50:03 08/25/19 23 08/24/2022 CT/GC AND TRICH OMONA S VAGIN DAVID (RRNA ), SWAB trichomonas vaginalis ribosomal RNA (rrna) Negati ve negati ve Not Available [facility] (Lab) [address], [place], [address], 08/25/2022 15:50:03 03/22/19 24 03/22/2023 pregn miah test, urine HCG negati ve Not Available [facility] [address], [place], [address], 03/22/2023 11:15:41 Result Notes None recorded. Problems Name Problem SNOMED Code Status Onset Date Resolution Date Notes Provider Name and Address Organization Details Recorded Time Evaluati on finding Completed 201802/04/2021 Unspecif ied abnormal cytologi farhan findings in specimen s from cervix uteri;Re corded Elsewher e: No Locat ion: [facility] S ource: EHR Winding Inspector valentina: N Viralti ce ID: 0001 Paul lable Time: 11:15:00 AM Katya [facility] [address] 14:14:[address] Concept Completed 201602/04/2021 Encntr for mold chipper exam (general ) (routine ) w/o abn findings ;Recorde d Elsewher e: No Locat ion: [facility] kyleigh [facility] S ource: EHR Winding Inspector valentina: N Viralti ce ID: 0001 Paul lable Time: 11:30:00 AM Katya [facility] 1 14:17:14 Atypical squamous cells of undeterm ined signific ance on cervical Papanico laou smear 259099564 Active 2013 Papanico laou smear of cervix with atypical squamous cells of undeterm ined signific ance (ASC-US) ;Recorde d Elsewher e: No Locat ion: [facility] S ource: EHR Winding Inspector valentina: N Viralti ce ID: 0001 Paul lable Time: 01:00:00 PM Not Available [facility] 0 18:36:[address] Concept Completed 201502/04/2021 Encounte r for surveill ance of other contrace ptives;R ecorded Elsewher e: No Locat ion: [facility] S ource: EHR Winding Inspector valentina: N Viralti ce ID: 0001 Paul lable Time: 09:30:00 AM Katya [facility] 1 14:17:17 Speciali zed medical examinat ion Completed 201302/04/2021 Gynecolo gical Examinat ion;Maurice rded Elsewher e: No Locat ion: [facility] S ource: EHR Winding Inspector valentina: N Viralti ce ID: 0001 Paul lable Time: 11:30:00 AM Katya [facility] 1 14:17:19 Vaginiti s and vulvovag initis Completed 201002/04/2021 Vaginiti s and vulvovag initis;P ractice ID: 0001 Katya orellana [facility] 14:17:30 Family planning surveill ance Completed 201002/04/2021 Surveill ance of other contrace ptive method;P ractice ID: 0001 Katya orellana [facility] 14:14:43 Amenorrh ea [id number] Completed 201102/04/2021 AMENORRH EA;Pract ice ID: 0001 [facility] 14:14:34 Routine antenata l care Completed 201102/04/2021 Supervis ion of other normal pregnanc y;Practi ce ID: 0001 Katya orellana [facility] 14:15:08 Pregnanc y test positive [id number] Completed 201102/04/2021 Positive Pregnanc y Test;Pra ctice ID: 0001 [facility] 14:15:03 Screenin g for malignan t neoplasm of cervix Completed 201102/04/2021 Pap Smear;Pr actice ID: 0001 Katya orellana [facility] 14:15:10 anatomy study Completed 201102/04/2021 [facility];P ractice ID: 0001 Katya orellana [facility] 14:14:45 Acute vaginiti s [id number] Completed 201502/04/2021 Acute vaginiti s;Record ed Elsewher e: No Locat ion: [facility] S ource: EHR Winding Inspector valentina: N Practi ce ID: 0001 Paul lable Time: 08:45:00 AM Katya orellana [facility] 1 14:14:16 Postpart um care Completed 201102/04/2021 Routine postpart um follow-u p;Record ed Elsewher e: No [facility]at ion[facility] S ource: EHR Winding Inspector valentina: Lois Bustos ce ID: 0001 Paul lable Time: 11:45:00 AM Katya [facility] 1 14:14:58 Human papillom avirus deoxyrib onucleic acid detected , high risk on cervical specimen 825923608 Active 2015 Cervical high risk HPV DNA test positive ;Recorde d Elsewher e: No Locat ion: [facility] S ource: EHR Winding Inspector valentina: Lois Bustos ce ID: 0001 Paul lable Time: 01:30:00 PM Not Available [facility] 0 18:36:18 Subcutan eous contrace ptive implant present [id number] Completed 201302/04/2021 Surveill ance of implanta ble subderma l contrace ptive;Re corded Elsewher e: No Locat ion[facility] S ource: EHR Winding Inspector valentina: Lois Bustos ce ID: 0001 Paul lable Time: 09:30:00 AM Katya [facility] 1 14:17:22 Vaginola bial hernia Completed 201502/04/2021 Other specifie d noninfla mmatory disorder s of vagina;R ecorded Elsewher e: No Locat ion: [facility] S ource: EHR Winding Inspector valentina: Lois Bustos ce ID: 0001 Paul lable Time: 08:45:00 AM Katya [facility] 1 14:17:32 Pregnanc y test negative [id number] Completed 201502/04/2021 Encounte r for pregnanc y test, result negative ;Recorde d Elsewher e: No Locat ion: [facility] S ource: EHR Winding Inspector valentina: N Juli ce ID: 0001 Paul lable Time: 01:30:00 PM Katya [facility] 1 14:15:01 Syphilis test finding [id number] Completed 201502/04/2021 Encntr screen for infectio ns w sexl mode of transmis s;Record ed Elsewher e: No Locat ion: [facility] S ource: EHR Winding Inspector valentina: N Viralti ce ID: 0001 Paul lable Time: 08:45:00 AM Katya [facility] 1 14:17:24 Mental disorder during pregnanc y - baby delivere d [id number] Completed 201202/04/2021 Postpart um mental disorder s of mother;R ecorded Elsewher e: No Locat ion: [facility] S ource: EHR Winding Inspector valentina: N Viralti ce ID: 0001 Paul lable Time: 01:15:00 PM Katya [facility] 1 14:14:56 Infectio n screenin g Completed 201402/04/2021 Encounte r for screenin g for oth infec/pa rastc diseases ;Recorde d Elsewher e: No Locat ion: [facility] S ource: EHR Winding Inspector valentina: N Viralti ce ID: 0001 Paul lable Time: 11:00:00 AM Katya [facility] 1 14:14:49 Adult health examinat ion Completed 201302/04/2021 ROUTINE MEDICAL EXAM;Rec orded Elsewher e: No Locat ion: [facility] S ource: EHR Winding Inspector valentina: N Viralti ce ID: 0001 Paul lable Time: 11:30:00 AM Katya [facility] 14:14:32 Residual hemorrho idal skin tags [id number] Completed 201802/04/2021 External hemorrho id;Recor ded Elsewher e: No Locat ion: [facility] S ource: EHR Winding Inspector valentina: N Practi ce ID: 0001 Paul lable Time: 11:30:00 AM Katya orellana [facility] 14:15:[address] Concept Completed 201602/04/2021 Encntr for general adult medical exam w/o abnormal findings ;Recorde d Elsewher e: No Locat ion: [facility] S ource: EHR Winding Inspector valentina: N Practi ce ID: 0001 Paul lable Time: 11:30:00 AM Katya Reed [facility] 14:17:12 Legal terminat ion of pregnanc y [id number] Completed 201202/04/2021 Legally induced , unspecif ied, without mention of complica tion;Rec orded Elsewher e: No Locat ion: [facility] S ource: EHR Winding Inspector valentina: N Practi ce ID: 0001 Paul lable Time: 10:00:00 AM [facility] 14:14:54 Delivery normal [id number] Completed 201102/04/2021 Normal delivery ;Practic e ID: 0001 Katya [facility] 14:14:38 Single live [id number] Completed 201102/04/2021 Mother with single liveborn ;Practic e ID: 0001 Katya [facility] 14:17:10 Urethrit is caused by Chlamydi a trachoma tis 440407364 Completed 201202/04/2021 Other nongonoc occal urethrit is, chlamydi a trachoma tis;Prac irina ID: 0001 Katya Reed [facility] 12/03/202 1 14:17:27 Insertio n of subcutan eous contrace ptive Completed 201302/04/2021 Insertio n of implanta ble subderma l contrace ptive;Pr actice ID: 0001 Katya Reed [facility], [facility] 1 14:14:51 Atypical glandula r cells on cervical Papanico laou smear 788062809 Active 2014 Pap Abnormal Endocerv Endometr ial Pascual;Pra ctice ID: 0001 Not Available [facility] 0 18:36:22 Low risk human papillom avirus deoxyrib onucleic acid detected in specimen from cervix [id number] 769886 Active 2014 Cervical low risk HPV DNA test positive ;Practic e ID: 0001 Not Available [facility] 0 18:36:23 Problem Notes None recorded. Procedures Surgical History Date Name Laterality Status Provider Name and Address Organization Details Recorded Time 3 Date of Last Pap Smear completed Ileana Berman [facility] 08/24/2022 15:18:39 6 Colposcopy completed Katya Reed [facility] 02/17/2021 15:59:10 Imaging Results None recorded. Procedure Notes None recorded. Medical Equipment None Reported. Allergies No known drug allergies Medications Name Sig Start Date Stop Date Status Note LastModified by Organization Details LastModified Time Monistat 7 100 mg vaginal supposito ry insert 1 supposit ory (100MG) by vaginal route every day for 7 days at bedtime 10/03 completed Prescrib ed Elsewher e: No Locat ion: [facility] M odify By: omedical Encount er DateTime : 09/28/19 12 04:11:03 PM Not Available Not Available Not Available prednison e 20 mg tablet TAKE 2 TABLETS BY MOUTH DAILY FOR 5 DAYS 03/22 completed Not Available Not Available Not Available Zoloft 20 mg/mL oral concentra te take 2.5 millilit er by oral route every day and mix with 4 oz. (1/2 cup) of water, rita amilcar, lemon/li me soda, lemonade or orange juice ONLY 09/25 completed Prescrib ed Elsewher e: Yes Loca tion: [facility] odify By: keenan dunaway DateTime : 06/20/19 13 01:00:00 PM Not Available Not Available Not Available sumatript an 5 mg/actuat ion nasal spray spray 1 spray by intranas al route once; if headache returns, dose may be repeated once after 2 hours, not to exceed 40 mg per day 02/04 completed Prescrib ed Elsewher e: Yes Loca tion: [facility] odify By: marichuy De Santiago r DateTime : 10/22/19 11:15:00 AM Not Available Not Available Not Available Diflucan 150 mg tablet Take 1 tablet every 72 hours by oral route. 06/14 completed Not Available Not Available Not Available sumatript an 50 mg tablet active Not Available Not Available Not Available Metrogel Vaginal 0.75 % (37.5 mg/5 gram) insert 1 applicat orful by vaginal route for 5 nights at bedtime 10/21 completed Prescrib ed Elsewher e: No Locat ion: [facility] odify By: marichuy De Santiago r DateTime : 02/15/20 11:11:58 AM Not Available Not Available Not Available Depo-Prov era 150 mg/mL intramusc ular suspensio n Inject 1 mL every 3 months by intramus cular route as directed for 90 days. 03/22 completed next due 11/07-11/24 Not Available Not Available Not Available Flagyl 500 mg tablet take 1 tablet (500MG) by oral route 2 times every day for 7 days 08/24 completed Not Available Not Available Not Available propranol ol ER 80 mg capsule,2 4 hr,extend ed release TAKE 1 CAPSULE BY MOUTH EVERY DAY 03/22 completed Not Available Not Available Not Available Valtrex 1 gram tablet Take 1 tablet(s ) every 12 hours by oral route for 10 days. 2023 active Not Available Not Available Not Avai lable Zoloft 25 mg tablet take 1 tablet (25MG) by oral route every day 06/19 completed Prescrib ed Elsewher e: No Locat ion: [facility] odify By: humberto hurtado DateTime : 03/11/19 13 01:15:00 PM Not Available Not Available Not Available ondansetr on 4 mg disintegr ating tablet DISSOLVE 1 TABLET ON THE TONGUE EVERY 8 HOURS NEEDED FOR NAUSEA OR VOMITING 03/22 completed Not Available Not Available Not Available Ortho Tri-Cycle n (28) 0.18 mg(7)/0.2 15 mg(7)/0.2 5 mg(7)-35 mcg tablet take 1 tablet by oral route every day 06/19 completed Prescrib ed Elsewher e: No Locat ion: [facility] odify By: humberto hurtado DateTime : 03/19/19 13 02:00:47 PM Not Available Not Available Not Available Depo-Prov era 150 mg/mL intramusc ular syringe inject 1 millilit er by intramus cular route every 3 months 05/25 completed Prescrib ed Elsewher e: Yes Loca tion: [facility] odify By: armando dunaway DateTime : 04/13/19 12 09:05:01 PM Not Available Not Available Not Available Zithromax 500 mg tablet take 2 tablet (1000MG) by oral route once 09/25 completed Prescrib ed Elsewher e: No Locat ion: [facility] kyleigh [facility] odify By: keenan dunaway DateTime : 06/25/19 13 10:45:14 AM Not Available Not Available Not Available Ortho-Cyc santo (28) 0.25 mg-35 mcg tablet take 1 tablet by oral route every day 10/21 completed Prescrib ed Elsewher e: No Locat ion: [facility] odify By: marichuy gonzáles DateTime : 02/13/20 17 11:45:00 AM Not Available Not Available Not Available 1 mg-20 mcg (24)/75 mg (4) tablet TAKE 1 TABLET BY MOUTH EVERY DAY WITH MEALS 03/22 completed Not Available Not Available Not Available Anusol-HC 2.5 % topical cream with perineal applicato r apply by topical route 2 times every day to the affected area(s) 06/14 completed Prescrib toan Malone e: Mayelin Locteodoro [facility] By: milyy Jonnathan r DateTime : 01/23/20 11:00:00 AM Not Available Not Available Not Available Vitals Date Recorded Body height Body mass index (BMI) Body weight Systolic blood pressure Diastolic blood pressure Provider Name and Address Organization Details Last Updated DateTime 06/14/2022 157.48 cm 24.5 kg/m2 07380.38 g 120 mm[Hg] 80 mm[Hg] Katya Reed [facility] 3 12:40:07 Date Recorded Body height Body mass index (BMI) Body weight Systolic blood pressure Diastolic blood pressure Provider Name and Address Organization Details Last Updated DateTime 08/24/2022 157.48 cm 24.7 kg/m2 91991.97 g 117 mm[Hg] 82 mm[Hg] Ileana [facility] 3 15:18:19 Date Recorded Body height Provider Name an d Address Organization Details Last Updated DateTime 08/25/2022 157.48 cm Ileana [facility] 08/25/2022 15:25:26 Date Recorded Body height Body mass index (BMI) Body weight Systolic blood pressure Diastolic blood pressure Provider Name and Address Organization Details Last Updated DateTime 03/22/2023 157.48 cm 25.8 kg/m2 26521.52 g 111 mm[Hg] 68 mm[Hg] Katya Reed [facility] 4 11:03:51 Social History Question Answer Notes LastModified by Anastacia betancourt Details LastModified Time Tobacco Smoking Status Former Smoker Former social smoker Katya Reed [facility] 06/14/2022 12:40:50 In The 14 Days Before Symptom Onset, Have You Had Close Contact With A Laboratory-confir med COVID-19 While That Case Was Ill? No Information not available 08/24/2022 In The 14 Days Before Symptom Onset, Have You Had Close Contact With A Person Who Is Under Investigation For COVID-19 While That Person Was Ill? No Information not available 08/24/2022 Have You Been To An Area Known To Be High Risk For COVID-19? No Information not available 08/24/2022 Sex: Unknown Functional Status None recorded. Mental Status None recorded. Family History Relationship Description Onset Age of this Age Resolved Age Notes LastModified by Organization Details LastModified Time Maternal Grandfather Hypertensive disorder [email or web address] Not available 2020 15:54:50 Maternal Grandmother Malignant tumor of stomach [email or web address] Not available 2020 15:55:06 Maternal Grandmother Malignant tumor of esophagus [email or web address] Not available 2020 15:55:29 Medical History Condition Response History of STI Y History of abnormal pap Y Gynecological History Statement/Question Response Abnormal Pap Y Date of LMP 02/02/2023 Was last menstrual period normal Y STIs/STDs Y HPV Vaccine N Colposcopy 11/16/2015 Duration of Flow (days) 28 Current Control Method None Are cycles usually normal Y Sexually Active? Y Menses Monthly Y Age of first menstrual cycle 10 Date of Last Pap Smear 06/14/2022 Sexual Problems? N Desired Control Method None LMP Approximate Obstetrics History GPAL:G 3 P 2 0 1 2 Type Value Full Term 2 Induced 1 Living 2 Total 3 Past Encounters Encounter ID Performer Location Encounter Start Date Encounter Closed Date Diagnosis/Indication Diagnosis SNOMED-CT Code Diagnosis ICD10 Code Diagnosis Note [id number] Darrel Sandhu MD [facility] [address] [address] 02/04/2021 14:02:21 02/04/2021 14:55:41 Vaginitis 60110153 N76.0 Sexually t ransmitted infectious disease 0001814 A64 this patient is a 30-year-ol d female presents for vulvar irritation and white vaginal discharge. She has history of yeast infection. She believes is a yeast infection. She denies any odor or yellow / mccallum discharge. Examinatio n revealed some erythema at the introitus of the vagina. Swabs were taken. The patient also leg 6 transmitte d disease screening. We agreed to the testing. She will be treated with Diflucan. [id number] Deloris Sykes , [facility] [address] [address] 06/14/2022 12:28:25 06/14/2022 14:18:45 Gynecologic examination 67978108 Z01.419 Take Calcium with Vitamin D 1200mg daily if not receiving in daily diet. It is strongly advised to have an annual flu shot and up can obtain at most pharmacies . If you have not had a TDap shot in the last 10 years you should obtain one as well. Discussed with patient & provided with informatio n regarding Gardisil vaccine to prevent the 4 strains for HPV that cause cervical cancer if under age 26. Encourage safe sexual practices, to use condoms and limit partners if not already in a monogamous relationsh ip. Do monthly self breast exams. Have mammogram yearly or every other year depending on family history. BRCA testing is now available for patients with strong genetic history of female cancer. If interested contact the office. Engage in daily exercise of low impact aerobic exercise 45-60 minutes 4-5 times weekly. Avoid tobacco and illicit drugs as well as using moderation with alcohol intake less than 1-2 8 oz beverages daily. This lifestyle behavior pattern will lead to less health conditions and longer life span. If BMI greater than 25 weight watchers or dietary consult advised. Patient received above instructio ns, and questions have been answered. If you have any questions please call or respond to this email. Patient was made aware of the patient portal and may obtain a paper copy of today's plan if desired. Pap/hpv sentSTD Screen sentGeneti c Screen discussedC olon Screen naDexa Screen [facility]Routine [facility] Contracept ion care management [id number] Z30.9 Discussed all control options in great detail. Pt would like to start ocp. She is aware of the risks and benefits. She does not have any medical condition that is contraindi cated with the use of estrogen containing control. Pt will start her pills on the first sunday following the start of her period. She is aware it is not effective for control the first month. She is also aware of the importance of taking at the same time every day. Encouraged use of condoms as the pill does not protect against STD's. Will return in 3 months for med check. Consent was read and signed. Pt verbalized understand ing. RTO x 3mos med check [id number] MELODY [facility] [address] [address] 08/24/2022 15:10:49 08/24/2022 15:34:23 Venereal disease screening [id number] Z11.3 LYUBOV sent for recent [employer] +trich test that we treated her for.Still with some odor but we agreed to await return of results as no other sx's present on exam.Partn er treated per pt Counseled on safe sex, use of condoms encouraged . Time spent in visit is a total of 15 mins with at least 50% of visit consisting of counseling and review of plan of care. Contracept ion care management [id number] Z30.9 Depo-Prove ra is a female hormonal method of control. It s very effective in preventing . Depo-Prove ra contains a synthetic (man-made) form of the hormone progestero ne, called depo medroxypro gesterone acetate (DMPA). The Depo-Prove ra injection gives 3 months protection against . You should get one injection every 3 months (13 weeks) to get the best protection against . It s safe to get your injection up to 3 weeks earlier if you can t get your next injection in exactly 13 weeks. This will need to be given between 1-7 of next menstrual cycle. Condoms or other secondary BC method is advised for at least the first 4wks. Possible SE's include: Mood changes, AUB, Dizziness, H/A's, bloating, loss of menstrual cycle, weight gain approx 5#'s every year for the first 3yrs. Does not prevent against STD's. Typical use only 6 out of every 100 women will become . Perfect use only 1 out of every 100 women will become . It is recommende d for Depo to be initiated at least 2yrs after you have started your menstrual cycle to protect bone health as there is a risk of bone density loss. This is usually reversible once this medication is stopped. While on this medication recommend increasing calcium in diet & taking calcium 1300mg-180 0mg daily along with paul D daily to prevent bone loss along with regular exercise. There is less of a risk of bone loss after age 18yo. After 3-5yrs use it may be recommende d to complete a dexa scan. This can be discussed with your healthcare provider. Stay on OCP's until after your first depo injection then okay to d/c. [id number] [facility] [address] [address] 09/06/2022 14:06:26 10/02/2022 19:59:03 [id number] Ijeoma Camarena [facility] [address],[place] [address] 03/22/2023 10:43:08 03/22/2023 14:15:59 Amenorrhea [id number] N91.2 Pain of breast [id number] N64.4 rx sent for valtrex given shingles hx and symptoms todayrx sent, r/b/a reviewedif symptoms continue past valtrex course, notify office for pelvic u/s orderpreca utions reviewed with pt Patient is to contact office or go to nearest ED/Urgent care if fever >/= 100.1, pain, excessive bleeding, unusual drainage or swelling in area of concern; or experienci ng worsening sx's or new onset of concerning sx's. Understand ing verbalized . All questions answered to patient satisfacti on. Time spent in visit is a total of 20 mins with at least 50% of visit consisting of counseling and review of plan of care. Health Concerns Section Related Observation LastModified by Organization Detai ls LastModified Time None Recorded Concern Status LastModified by Organization Details LastModified Time None Recorded Advance Directives Directive None Recorded Payers Encounter Date Sequence Insurance Name Policy Number Policy Lara Covered Member ID Lara Member ID Guarantor Name 06/14/2022 1 [facility] ON OR AFTER 09/02/20 (MEDICAID REPLACEMENT - HMO) Ileana Burton [id number] Ileana Burton 08/24/2022 1 [facility] ON OR AFTER 09/02/20 (MEDICAID REPLACEMENT - HMO) Ileana Burton [id number] Ileana Burton 09/06/2022 1 [facility] ON OR AFTER 20 (MEDICAID REPLACEMENT - HMO) Ileana Micheal [id number] Ileana Barraza Micheal 03/22/2023 1 [facility] - [facility] ON OR AFTER 20 (MEDICAID REPLACEMENT - HMO) Ileanalizzette Burton [id number] Ileana Barraza Micheal Notes Date Note Type Note Provider Name and Address Organization Details Recorded Time 06/14/2022 text/html Annual GYNReport ed bypatient.History: no gynecologic complaints Menstrual cycle:Normal menses Urinary symptoms:No hematuria; No incontinence Vulva:No genital lesion Vagina:Normal vaginal discharge Breast:No breast pain; No breast lump; No nipple discharge Current Contraception:Cond oms Sexual complaints:No sexual complaints; No pain during intercourse; Normal libido Menopausal Symptoms:No menopausal symptoms; Normal vaginal lubrication Psychological symptoms:No depression; No anxiety; No PMDD Preventive measures:Encourage self breast examination; Encourage regular exercise; Encourage no tobacco use; Encourage regular mammograms starting age 40; Followed with yearly pap smears [facility] [address], [place], [address], [facility] 06/14/2022 14:07:31 08/24/2022 text/html Here today for T OC and would like to switch to Depo inj's. Deloris Sykes TORO- [address], [place], [address], [facility] 08/24/2022 15:31:10 03/22/2023 text/html 32yo [id number] for evaluation of right breast painsymptoms present for the past few daysburning/tingli ng sensation near nipple - feels very similar to when she had the beginning symptoms of shingles on her back beforeno blisters, open areas/or sores notedneg nipple dischargeno lumps MELODY Ontiveros [address], [place], [address], [facility] 03/22/2023 14:15:47 OBGyn Episode Ob Episode Information Episode Created Date Number of Fetuses Patient Bloodtype Patient rh Status Prepregnancy Weight lbs Domestic Partner Domestic Partner Phone Father Name System Manager Status 02/18/20 21 1 CLOSED Fetus Data First Name Last Name Admitted to NICU Weight (g) Sex Living Outcome Pediatric Complications Fetus ID Race Codes Race Delivery Type 3656.85 8704 M Full Term [id number] Vaginal Delivery Cay[place] Calculation Initial [place] Date Initial Exam Date Initial Exam Provider Initial Ultrasound Date Last Menstrual Period Date Ultra Sound Weeks Gestation 0 Eighteen To Twenty Week [place] Update Ultra Sound Date Fundal Height At Umbil Quickening Date Ultra Sound Latest Weeks Gestation Final [place] Confirmed By Final [place] Confirmed Date Final [place] Date Ultra Sound Latest Days Gestation 0 0 Menstrual History Last Menstrual Date Menses Monthly On Bcp Conception Prior Menses Frequency Hcg Plus Date Menarche Onset Age Delivery Information Delivery Date Delivery Type Labor Anesthesia Weeks Gestation Incision Type Labor Labor Length Hrs Delivered By Post Complications Tubal Sterilization Discharge Date Comments 9 40 Discharge Information Feeding Method Contraceptive Method Maternal HG B and HCT Levels Ob Episode Information Episode Created Date Number of Fetuses Patient Bloodtype Patient rh Status Prepregnancy Weight lbs Domestic Partner Domestic Partner Phone Father Name System Manager Status 02/18/20 21 1 CLOSED Fetus Data First Name Last Name Admitted to NICU Weight (g) Sex Living Outcome Pediatric Complications Fetus ID Race Codes Race Delivery Type , Induced [id number] [place] Calculation Initial [place] Date Initial Exam Date Initial Exam Provider Initial Ultrasound Date Last Menstrual Period Date Ultra Sound Weeks Gestation 0 Eighteen To Twenty Week [place] Update Ultra Sound Date Fundal Height At Umbil Quickening Date Ultra Sound Latest Weeks Gestation Final [place] Confirmed By Final [place] Confirmed Date Final [place] Date Ultra Sound Latest Days Gestation 0 0 Menstrual History Last Menstrual Date Menses Monthly On Bcp Conception Prior Menses Frequency Hcg Plus Date Menarche Onset Age Delivery Information Delivery Date Delivery Type Labor Anesthesia Weeks Gestation Incision Type Labor Labor Length Hrs Delivered By Post Complications Tubal Sterilization Discharge Date Comments 3 Discharge Information Feeding Method Contraceptive Method Maternal HG B and HCT Levels Ob Episode Information Episode Created Date Number of Fetuses Patient Bloodtype Patient rh Status Prepregnancy Weight lbs Domestic Partner Domestic Partner Phone Father Name System Manager Status 02/18/20 21 1 CLOSED Fetus Data First Name Last Name Admitted to NICU Weight (g) Sex Living Outcome Pediatric Complications Fetus ID Race Codes Race Delivery Type 3175.14 4 F Full Term [id number] Vaginal Delivery [place] Calculation Initial [place] Date Initial Exam Date Initial Exam Provider Initial Ultrasound Date Last Menstrual Period Date Ultra Sound Weeks Gestation 0 Eighteen To Twenty Week [place] Update Ultra Sound Date Fundal Height At Umbil Quickening Date Ultra Sound Latest Weeks Gestation Final [place] Confirmed By Final [place] Confirmed Date Final [place] Date Ultra Sound Latest Days Gestation 0 0 Menstrual History Last Menstrual Date Menses Monthly On Bcp Conception Prior Menses Frequency Hcg Plus Date Menarche Onset Age Delivery Information Delivery Date Delivery Type Labor Anesthesia Weeks Gestation Incision Type Labor Labor Length Hrs Delivered By Post Complications Tubal Sterilization Discharge Date Comments 2 39 low platelets , mild thrombocy topenia Discharge Information Feeding Method Contraceptive Method Maternal HG B and HCT Levels
--- OUTSIDE RECORDS SUMMARY | 2024-04-21 22:30 | XMS_ITS | Clinical Summary ---
Author Organization [employer] gal[employer] [address] Address [address] [place] [address] Phone Care Team Providers Care Sandwich Board Carrier Name Role Phone Unavailable Primary Care Provider Unavailabl e Medications No known medications Encounters Date Type Department Care Team Description 03/06/2024 4:12 PM PHARMACEUTICAL PLANT OPERATOR - 03/06/2024 6:49 PM PHARMACEUTICAL PLANT OPERATOR Hospital Encounter [facility] OB Triage [address] [place] [id number] Mine Montalvo MD Discharge Disposition: Home or Self Care from Last 3 Months Social History Tobacco Use Types Packs/Day Years Used Date Smoking Tobacco: Never Tobacco Cessation:Counseling Given: Not Answered Alcohol Use Standard Drinks/Week Comments Not Currently 0 (1 standard drink = 0.6 oz pur e alcohol) Feeling Safe Answer Date Recorded Are you in a relationship wi th someone who hurts you emotionally and/or physically? Patient unable to answer 03/06/2024 Estimated Date of Delivery Comme nts Yes 09/30/2024 Based on last me nstrual period of 12/25/2023 Sex and Gender Information Value Date Recorded Sex Assigned at Not on file Legal Sex Female 6:11 AM PHARMACEUTICAL PLANT OPERATOR Gender Identity Not on file Sexual Orientation Not on file Last Filed Vital Signs Vital Sign Reading Time Taken Comments Blood Pressure 122/70 03/06/2024 4:09 PM PHARMACEUTICAL PLANT OPERATOR Pulse 103 03/06/2024 4:09 PM PHARMACEUTICAL PLANT OPERATOR Temperature 36.9 C (98.4 F) 03/06/2024 4:09 PM PHARMACEUTICAL PLANT OPERATOR Respiratory Rate 16 03/06/2024 4:09 PM PHARMACEUTICAL PLANT OPERATOR Oxygen Saturation 100% 03/06/2024 4:09 PM PHARMACEUTICAL PLANT OPERATOR Inhaled Oxygen Concentration - - Weight 58.5 kg (129 lb) 03/06/2024 4:09 PM PHARMACEUTICAL PLANT OPERATOR Height 157.5 cm (5' 2 ) 03/06/2024 5:25 PM PHARMACEUTICAL PLANT OPERATOR Body Mass Index 23.59 03/06/2024 4:09 PM PHARMACEUTICAL PLANT OPERATOR Plan of Treatment Health Maintenance Due Date Last Done Comments DTAP/TDAP/TD VACCINES (1 - Tdap) 2008 HEPATITIS B VACCINES (1 of 3 - 19+ 3-dose series) 2008 CERVICAL CANCER SCREENING 09/20/2019 INFLUENZA VACCINE (#1) 2023 HPV VACCINES Aged Out No longer eligi ble based on patient's age to complete this topic RSV VACCINE (60+ or ) (No Doses Required) Completed Procedures Procedure Name Priority Date/Time Associated Diagnosis Comments POC , URINE Routine 03/06/2024 4:19 PM PHARMACEUTICAL PLANT OPERATOR from Last 3 Months Results * (ABNORMAL) POC , URINE (03/06/2024 4:19 PM PHARMACEUTICAL PLANT OPERATOR) HCG QUAL URINE Positive(A ) Negative 03/06/2024 4:19 PM PHARMACEUTICAL PLANT OPERATOR [facility] Urine 03/06/2024 4:19 PM PHARMACEUTICAL PLANT OPERATOR 03/06/2024 4:23 PM PHARMACEUTICAL PLANT OPERATOR Narrative [facility] - 03/06/2024 4:19 PM PHARMACEUTICAL PLANT OPERATOR Positive : Result is greater than or equal to 25 mIU/mL Negative: Result is less than 25 mIU/mL Invalid: Result is borderline or indeterminate,send to lab for serum test methodology. us Mine Montalvo MD POINT OF CARE TESTING Final Res ult [facility] CLIA# [id number] [address] [place] [address] from Last 3 Months Advance Directives For more information, please contact: [phone] * Full Code (Latest Code Status on File) Date Activated Date Inactivated Comments 03/06/2024 5:15 PM 03/06/2024 8:50 PM
--- OUTSIDE RECORDS SUMMARY | 2024-04-21 22:30 | XMS_ITS | Data Portability ---
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 Plan of Treatment Reminders Order Date Submit Date Provider Last Modified By Organization Details Last Modified Time Details Appointments None recorded. Lab TSH, ultra-sensi tive, serum 2019 [facility], [address] [place] [address], [place] [address], [place], [address], 0 08:14:49 CBC w/ auto diff 2019 020 [facility], [address] [place] [address], [place] [address], [place], [address], 0 08:14:47 PT/PTT, plasma 2019 020 [facility], [address] [place] [address], [place] [address] [address], [place], [address], 0 08:14:48 CMP, serum or plasma 2019 020 [facility], [address] [place] [address], [place] [address], [place], [address], 0 08:14:48 Referral None recorded. Procedures None recorded. Surgeries None recorded. Imaging US, lower extremity, nonvascular - 32 year old female with palpable mass of the distal left quadricep x 2-3 weeks. 2022 023 [facility], [address] [place] [address] [address], [place], [address], 3 12:19:29 XR, hip + pelvis, bilateral - 32 year old female with chronic BL hip and knee pain. 2022 023 [facility], [address] [place] [address] [address], [place], [address], 3 13:40:54 XR, knee, 3 view - 31 year old female with chronic BL knee pain. 2022 023 [facility], [address] [place] [address] [address], [place], [address], 3 12:48:06 Medication Orders triamcinolo ne acetonide 0.1 % topical ointment 2023 024 [facility], [address] [facility], [place], [place], [id number], 4 12:49:04 Benadryl 25 mg capsule 2023 024 [facility], [address] [facility], [place], [place], [id number], 4 12:49:04 Zyrtec 10 mg capsule 2023 024 [facility], [address] [facility], [place], [place], [id number], 4 12:49:03 sumatriptan 50 mg tablet 2022 023 [facility], [address] [facility], [place], [place], [id number], 3 16:20:39 propranolol ER 80 mg capsule,24 hr,extended release [email or web address] [place] [address] [facility], [address], [place], [place], [id number], 3 12:50:01 sumatriptan 100 mg tablet 2019 020 [email or web address] [facility], [address], [place], [place], [id number], 3 16:12:01 benzoyl peroxide 5 % topical cleanser 2018 019 [email or web address] [facility], [address], [place], [place], [id number], 0 16:55:04 ketoconazol e 2 % shampoo 2018 019 [email or web address] [employer] [facility] #94299, [address], [place], [place], [id number], 0 16:51:55 Patient TargetsNo targets recorded. Patient Instructions Encounter Date Encounter Id Patient Instructions Last Modified By Organization Details Last Modified Time 02/02/2020 [id number] migraine headache: care instructions [email or web address] Not available 02/03/2020 11:13:39 09/07/2022 [id number] migraine headache: care instructions [email or web address] Not available 2022 12:51:12 learning about rice (rest, ice, compression, and elevation) [email or web address] Not available 2022 12:51:50 09/27/2022 [id number] A healthy lifestyle: care instructions [email or web address] Not available 09/28/2022 09:16:32 hip flexor strain: rehab exercises [email or web address] Not available 09/28/2022 09:16:26 hip: exercises [email or web address] Not available 0 09/28/2022 09:16:26 Reason for Referral None Reported. Results Created Date Observation Date Name Description Value Unit Range Abnormal Flag Note LastModifiedBy Organization Detail LastModifiedTime 02/02/20 20 02/03/2020 CBC w/ auto diff WBC 5.9 x10e3 /uL 3.4-10 .8 Not Available [facility] ([facility]) [address], [place], [address], 02/03/2020 08:14:47 02/02/2002/03/2020 CBC w/ auto diff RBC 4.77 x10e6 /uL 3.77-5 .28 Not Available [facility] ([facility]) [address] [facility], [place], [address], 02/03/2020 08:14:47 02/02/2002/03/2020 CBC w/ auto diff hemoglobin 14.7 g/dL 11.1-1 5.9 Not Available [facility] ([facility]) [address] [facility], [place], [address], 02/03/2020 08:14:47 02/02/2002/03/2020 CBC w/ auto diff hematocrit 43.4 % 34.0-4 6.6 Not Available [facility] ([facility]) [address] [facility], [place], [address], 02/03/2020 08:14:47 02/02/2002/03/2020 CBC w/ auto diff MCV 91 fL 79-97 Not Available [facility] ([facility]) [address], [place], [address], 02/03/2020 08:14:47 02/02/2002/03/2020 CBC w/ auto diff MCH 30.8 pg 26.6-3 3.0 Not Available [facility] ([facility]) [address] [facility] [address], [place], [address], 02/03/2020 08:14:47 02/02/2002/03/2020 CBC w/ auto diff MCHC 33.9 g/dL 31.5-3 5.7 Not Available [facility] ([facility]) [address] [place], [address], 02/03/2020 08:14:47 02/02/20 02/03/2020 CBC w/ auto diff RDW 12.0 % 11.7-1 5.4 Not Available [facility] ([facility]) [address] [facility], [place], [address], 02/03/2020 08:14:47 02/02/20 20 02/03/2020 CBC w/ auto diff platelets 164 x10e3 /uL 150-45 0 Not Available [facility] ([facility]) [address], [place], [address], 02/03/2020 08:14:47 02/02/20 20 02/03/2020 CBC w/ auto diff neutrophils 60 % not estab. Not Available [facility] ([facility]) [address] [facility], [place], [address], 02/03/2020 08:14:47 02/02/20 20 02/03/2020 CBC w/ auto diff lymphs 30 % not estab. Not Available [facility] ([facility]) [address] [facility], [place], [address], 02/03/2020 08:14:47 02/02/20 20 02/03/2020 CBC w/ auto diff monocytes 8 % not estab. Not Available [facility] ([facility]) [address] [facility], [place], [address], 02/03/2020 08:14:47 02/02/20 20 02/03/2020 CBC w/ auto diff eos 2 % not estab. Not Available [facility] ([facility]) [address] [facility], [place], [address], 02/03/2020 08:14:47 02/02/20 20 02/03/2020 CBC w/ auto diff basos 0 % not estab. Not Available [facility] ([facility]) [address], [place], [address], 02/03/2020 08:14:47 02/02/20 20 02/03/2020 CBC w/ auto diff immature cells TUBE AND ROD STRAIGHTENER Not Available [facility]) [address] [place], [address], 02/03/2020 08:14:47 02/02/20 20 02/03/2020 CBC w/ auto diff neutrophils (absolute) 3.5 x10e3 /uL 1.4-7. 0 Not Available [facility] ([facility]) [address] [place], [address], 02/03/2020 08:14:47 02/02/20 20 02/03/2020 CBC w/ auto diff lymphs (absolute) 1.8 x10e3 /uL 0.7-3. 1 Not Available [facility] ([facility]) [address] [place], [address], 02/03/2020 08:14:47 02/02/20 20 02/03/2020 CBC w/ auto diff monocytes(ab solute) 0.4 x10e3 /uL 0.1-0. 9 Not Available [facility] ([facility]) [address] [place], [address], 02/03/2020 08:14:47 02/02/20 20 02/03/2020 CBC w/ auto diff eos (absolute) 0.1 x10e3 /uL 0.0-0. 4 Not Available [facility] ([facility]) [address] [place], [address], 02/03/2020 08:14:47 02/02/20 20 02/03/2020 CBC w/ auto diff baso (absolute) 0.0 x10e3 /uL 0.0-0. 2 Not Available [facility] ([facility]) [address] [place], [address], 02/03/2020 08:14:47 02/02/20 20 02/03/2020 CBC w/ auto diff immature granulocytes 0 % not estab. Not Available [facility] ([facility]) [address] [place], [address], 02/03/2020 08:14:47 02/02/20 20 02/03/2020 CBC w/ auto diff immature grans (abs) 0.0 x10e3 /uL 0.0-0. 1 Not Available [facility] ([facility]) [address] [place], [address], 02/03/2020 08:14:47 02/02/20 20 02/03/2020 CBC w/ auto diff NRBC TUBE AND ROD STRAIGHTENER Not Available [facility] ([facility]) [address] [place], [address], 02/03/2020 08:14:47 02/02/2002/03/2020 CBC w/ auto diff hematology comments: TUBE AND ROD STRAIGHTENER Not Available [facility] ([facility]) [address] [place], [address], 02/03/2020 08:14:47 02/02/20 20 02/03/2020 CMP, serum or plasm a glucose 80 mg/dL 65-99 Not Available [facility] ([facility]) [address] [place], [address], 02/03/2020 08:14:47 02/02/20 20 02/03/2020 CMP, serum or plasm a BUN 7 mg/dL 6-20 Not Available [facility] ([facility]) [address] [place], [address], 02/03/2020 08:14:47 02/02/2002/03/2020 CMP, serum or plasm a creatinine 0.75 mg/dL 0.57-1 .00 Not Available [facility] ([facility]) [address] [place], [address], 02/03/2020 08:14:47 02/02/2002/03/2020 CMP, serum or plasm a eGFR if nonafricn AM 107 mL/mi n/1.7 3 >59 Not Available [facility] ([facility]) [address] [place], [address], 02/03/2020 08:14:47 02/02/20 20 02/03/2020 CMP, serum or plasm a eGFR if africn AM 124 mL/mi n/1.7 3 >59 Not Available [facility] ([facility]) [address] [place], [address], 02/03/2020 08:14:47 02/02/20 20 02/03/2020 CMP, serum or plasm a BUN/creatini ne ratio 9 9-23 Not Available [facility] ([facility]) [address] [place], [address], 02/03/2020 08:14:47 02/02/20 20 02/03/2020 CMP, serum or plasm a sodium 142 mmol/ L 134-14 4 Not Available [facility] ([facility]) [address] [place], [address], 02/03/2020 08:14:47 02/02/20 20 02/03/2020 CMP, serum or plasm a potassium 4.9 mmol/ L 3.5-5. 2 Not Available [facility] ([facility]) [address] [place], [address], 02/03/2020 08:14:47 02/02/20 20 02/03/2020 CMP, serum or plasm a chloride 104 mmol/ L 96-106 Not Available [facility] ([facility]) [address] [place], [address], 02/03/2020 08:14:47 02/02/2002/03/2020 CMP, serum or plasm a carbon dioxide, total 24 mmol/ L 20-29 Not Available [facility] ([facility]) [address] [place], [address], 02/03/2020 08:14:47 02/02/20 20 02/03/2020 CMP, serum or plasm a calcium 9.8 mg/dL 8.7-10 .2 Not Available [facility] ([facility]) [address] [place], [address], 02/03/2020 08:14:47 02/02/20 20 02/03/2020 CMP, serum or plasm a protein, total 7.2 g/dL 6.0-8. 5 Not Available [facility] ([facility]) [address] [place], [address], 02/03/2020 08:14:47 02/02/2002/03/2020 CMP, serum or plasm a albumin 4.6 g/dL 3.9-5. 0 Not Available [facility] ([facility]) [address] [place], [address], 02/03/2020 08:14:47 02/02/20 20 02/03/2020 CMP, serum or plasm a globulin, total 2.6 g/dL 1.5-4. 5 Not Available [facility] ([facility]) [address] [place], [address], 02/03/2020 08:14:47 02/02/2002/03/2020 CMP, serum or plasm a A/G ratio 1.8 1.2-2. 2 Not Available [facility] ([facility]) [address] [place], [address], 02/03/2020 08:14:47 02/02/2002/03/2020 CMP, serum or plasm a bilirubin, total 0.4 mg/dL 0.0-1. 2 Not Available [facility] ([facility]) [address] [place], [address], 02/03/2020 08:14:47 02/02/20 20 02/03/2020 CMP, serum or plasm a alkaline phosphatase 47 IU/L 39-117 Not Available [facility] [address] [place], [address], 02/03/2020 08:14:47 02/02/20 20 02/03/2020 CMP, serum or plasm a AST (SGOT) 11 IU/L 0-40 Not Available [facility] ([facility]) [address] [place], [address], 02/03/2020 08:14:47 02/02/20 20 02/03/2020 CMP, serum or plasm a ALT (SGPT) 6 IU/L 0-32 Not Available [facility] ([facility]) [address] [facility] [address], [place], [address], 02/03/2020 08:14:47 02/02/20 20 02/03/2020 PT/PT T, plasm a INR 1.0 0.9-1. 2 Refer ence inter jennifer is for non-a ntico agula eben patie nts. Sugge sted INR thera peuti c range for Vitam in K antag onist thera py: Stand itzel Dose (mode rate inten sity thera peuti c range ): 2.0 - 3.0 Highe r inten sity thera peuti c range 2.5 - 3.5 Not Available [facility] ([facility]) [address] [facility] [address], [place], [address], 02/03/2020 08:14:48 02/02/20 20 02/03/2020 PT/PT T, plasm a prothrombin time 10.6 sec 9.1-12 .0 Not Available [facility] ([facility]) [address] [place], [address], 02/03/2020 08:14:48 02/02/20 20 02/03/2020 PT/PT T, plasm a APTT 24 sec 24-33 This test has not been valid ated for monit oring unfra ction ated hepar in thera py. aPTT- based thera peuti c range s for unfra ction ated hepar in thera py have not been estab thai peres. For gener al guide lines on Hepar in monit oring , refer to the [facility] Servi wan. Not Available [facility] ([facility]) [address] [facility] [address], [place], [address], 02/03/2020 08:14:48 02/02/20 20 02/03/2020 TSH, ultra -sens itive , serum TSH 2.400 uIU/m L 0.450- 4.500 No appar ent thyro id disor melinda. Addit ional testi ng not indic ated. In rare insta nces, Secon damian Hypot hyroi dism as well as Subcl inica l Hypot hyroi dism have been repor eben in some patie nts with greg l TSH value s. Not Available [facility] ([facility]) [address] [facility] [address], [place], [address], 02/03/2020 08:14:49 01/16/20 19 01/03/2019 XR, chest No observ ation record ed. Not Available 2018 15:42:42 03/08/19 22 12/11/2020 XR, chest No observ ation record ed. [email or web address] Not Available 2021 10:34:21 09/18/19 23 09/16/2022 XR, knee, 3 view No observ ation record ed. [address] [address], [place], [address], 09/18/2022 14:59:17 10/14/19 23 10/13/2022 XR, hip + pelvi s, bilat eral No observ ation record ed. [address] [address], [place], [address], 10/16/2022 15:30:09 11/17/19 23 11/15/2022 US, lower extre mitshai castro scula r No observ ation record ed. [address], [address], 12/01/2022 11:38:59 Result Notes None recorded. 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, [place], [address], [place] - [facility] 4 12:46:56 First trimeste r darcy y 12628988 Active 2023 Due date is at end of 09/2024 or early 10/2024. Currently under the care of Jeana Burch. [facility] Attn: Stephen sanchez,[address] [facility], [place], [address], [place] - [facility] 4 12:51:07 Fluid level behind tympanic membrane Completed 02/02/2020 Cary Trujillo PA-C Attn: Stephen sanchez,[address] [facility], [place], [address], [place] [facility] 0 16:56:11 Migraine 30288075 Active Larissa Munguia RN null, [place] [facility] 6 11:09:19 Patellof emoral stress syndrome 660263018 Active Garrysanna Lucero null, [place] [facility] 6 14:32:20 Problem Notes None recorded. Procedures Surgical History None recorded. Imaging Results Imaging Date Name Status LastModified by [email or web address] Details LastModified Time 01/03/2019 XR, chest completed [email or web address] Information no t available 01/15/2019 15:42:42 12/11/2020 XR, chest completed [email or web address] Information no t available 03/08/2021 10:34:21 09/16/2022 XR, knee, 3 view completed [address] [place] [address], [address], 09/18/2022 14:59:17 10/13/2022 XR, hip + pelvis, bilateral completed [address], [address], 10/16/2022 15:30:11/15/2022 US, lower extremity, nonvascular completed [facility] [address], [place], [address], 12/01/2022 11:38:59 Procedure Notes None recorded. Medical Equipment None Reported. Allergies Allergen ID Allergen Name Allergen Category Reaction Reaction Severity Criticality Documentation Date Start Date Code Code System Note Provider Name and Address Organization Details Recorded Time red dye food,medi cation other mild Not available 03/02/2024 UNK irrit ation at site of red ink tatto os Not Available Not Available Not Available Medications Name Sig Start Date Stop Date Status Note LastModified by Organization Details LastModified Time Prescript ion - Prior Authoriza tion Request 01/04 completed Not Available Not Available Not Available cyclobenz aprine 10 mg tablet Take 1 tablet 3 times a day by oral route as needed for 30 days. active Not Available Not Available No t Available amoxicill in 500 mg capsule 02/01 completed Not Available Not Available Not Available ketoconaz ole 2 % shampoo APPLY TO THE AFFECTED AREA, LATHER, LEAVE IN PLACE FOR 5 MINUTES, AND THEN RINSE OFF WITH WATER ONCE DAILY 02/01 completed Not Available Not Available Not Available cetirizin e 10 mg tablet active Not Available Not Available Not Available ibuprofen 800 mg tablet Take 1 tablet(s ) 3 times a day by oral route for 30 days. 06/24 completed Not Available Not Available Not Available fluconazo le 150 mg tablet active Not Available Not Available Not Available valacyclo vir 1 gram tablet TAKE 1 TABLET BY MOUTH EVERY 12 HOURS FOR 10 DAYS active Not Available Not Available No t Available sumatript an 100 mg tablet TK 1 T PO AT FIRST SIGN OF MIGRAINE . MAY REPEAT IN 2 H. MAX OF 2 TS IN 24 H 09/07 completed Not Available Not Available Not Available sumatript an 25 mg tablet Take 1 tablet as needed by oral route as needed. active Not Available Not Available No t Available metronida zole 0.75 % (37.5 mg/5 gram) vaginal gel 03/01 completed Not Available Not Available Not Available prednison e 20 mg tablet TAKE 2 TABLETS BY MOUTH DAILY FOR 5 DAYS active Not Available Not Available No t Available Tubersol 5 tub. unit/0.1 mL intraderm al injection solution Take 0.1 mL by intrader mal route. 06/26 completed pt informed to come back to 3rd floor on 02-26-20 15 to be read on left arm Not Available Not Available Not Available permethri n 5 % topical cream 06/24 completed Not Available Not Available Not Available sumatript an 50 mg tablet Take one tablet at first signs of migraine . May repeat in two hours. Do not exceed 4 tablets in 24 hours. active Not Available Not Available No t Available metronida zole 500 mg tablet 09/07 completed Not Available Not Available Not Available acetamino phen 300 mg-codein e 30 mg tablet 02/01 completed Not Available Not Available Not Available amoxicill in 875 mg tablet 06/24 completed Not Available Not Available Not Available benzonata te 100 mg capsule TK 1 C PO TID PRF COUGH 02/01 completed Not Available Not Available Not Available hydrocodo ne 7.5 mg-acetam inophen 325 mg tablet 06/26 completed Not Available Not Available Not Available triamcino lone acetonide 0.1 % topical ointment APPLY A THIN LAYER TO THE AFFECTED AREA(S) BY TOPICAL ROUTE 2 TIMES PER DAY active Not Available Not Available No t Available propranol ol ER 80 mg capsule,2 4 hr,extend ed release Take 1 capsule every day by oral route. 2022 active Not Available Not Available Not Avai lable promethaz ine 25 mg tablet TK 1 T PO Q 4 TO 6 H PRN N 02/01 completed Not Available Not Available Not Available hydrocort isone 2.5 % topical cream 02/01 completed Not Available Not Available Not Available ibuprofen 600 mg tablet 02/01 completed Not Available Not Available Not Available benzoyl peroxide 5 % topical cleanser WASH THE AFFECTED AREA(S) BY TOPICAL ROUTE 1 TIME PER DAY 02/01 completed Not Available Not Available Not Available albuterol sulfate HFA 90 mcg/actua tion aerosol inhaler INHALE 2 PUFFS PO QID PRF SOB 02/01 completed Not Available Not Available Not Available ondansetr on 4 mg disintegr ating tablet DISSOLVE 1 TABLET ON THE TONGUE EVERY 8 HOURS NEEDED FOR NAUSEA OR VOMITING 09/07 completed Not Available Not Available Not Available clotrimaz ole 1 % topical cream APPLY TO THE AFFECTED AND SURROUND ING AREAS OF SKIN BY TOPICAL ROUTE 3 TIMES PER DAY 06/26 completed Not Available Not Available Not Available medroxypr ogesteron e 150 mg/mL intramusc ular suspensio n ADMINIST ER 1 ML IN THE MUSCLE EVERY 3 MONTHS DIRECTED active Not Available Not Available No t Available loratadin e 10 mg tablet 02/01 completed Not Available Not Available Not Available naproxen 500 mg tablet 03/01 completed Not Available Not Available Not Available Benadryl 25 mg capsule Take 2 capsules every day by oral route at bedtime for 7 days. 2023 active Not Available Not Available Not Avai lable neomycin- polymyxin -hydrocor t 3.5 mg-10,000 unit/mL-1 % ear drops,estrada p Instill 4 drops 4 times a day by otic route affected ear for 7 days. 03/01 completed Not Available Not Available Not Available Vitamin D3 25 mcg (1,000 unit) capsule Take 1 capsule every day by oral route. 06/24 completed Not Available Not Available Not Available Mononessa (28) 0.25 mg-35 mcg tablet 03/01 completed Not Available Not Available Not Available peg 3350 240 gram-elec trolytes 22.72 gram-6.72 g-5.84 g powdr for soln 06/24 completed Not Available Not Available Not Available Zyrtec 10 mg capsule Take 1 capsule every day by oral route for 7 days. 2023 active Not Available Not Available Not Avai lable Junel Fe 24 1 mg-20 mcg (24)/75 mg (4) tablet TAKE 1 TABLET BY MOUTH EVERY DAY WITH MEALS 09/07 completed Not Available Not Available Not Available Vitals Date Recorded Body height Body mass index (BMI) Body weight Body temperature Heart rate Oxygen saturation Oxygen saturation in Arterial blood by Pulse oximetry Systolic blood pressure Diastolic blood pressure Provider Name and Address Organization Details Last Updated DateTime 9 157.48 cm 24 kg/m2 91863 g 98.5 [degF] 72 /min 99 % 99 % 112 mm[Hg] 76 mm[Hg] Zunilda Garcia MA [place] - [facility] 9 15:16:17 Date Recorded Body temperature Body weight Heart rate Oxygen saturation Oxygen saturation in Arterial blood by Pulse oximetry Systolic blood pressure Diastolic blood pressure Provider Name and Address Organization Details Last Updated DateTime 0 98.4 [degF] 73165.0 9 g 84 /min 99 % 99 % 108 mm[Hg] 70 mm[Hg] Daly Watson MA [facility] 0 16:46:28 Date Recorded Body height Body mass index (BMI) Body weight Body temperature Heart rate Systolic blood pressure Diastolic blood pressure Provider Name and Address Organization Details Last Updated DateTime 3 157.48 cm 24.7 kg/m2 34595.9 7 g 98.4 [degF] 71 /min 127 mm[Hg] 78 mm[Hg] Zunilda Garcia MA [facility] 3 16:05:52 Date Recorded Body height Body mass index (BMI) Body weight Body temperature Heart rate Oxygen saturation Oxygen saturation in Arterial blood by Pulse oximetry Systolic blood pressure Diastolic blood pressure Provider Name and Address Organization Details Last Updated DateTime 3 157.48 cm 25.1 kg/m2 74013.1 5 g 97.2 [degF] 84 /min 98 % 98 % 112 mm[Hg] 78 mm[Hg] Paris Reardon [facility] 3 16:15:18 Date Recorded Body weight Body mass index (BMI) Body height Body temperature Heart rate Systolic blood pressure Diastolic blood pressure Provider Name and Address Organization Details Last Updated DateTime 4 95347.4 2 g 23.6 kg/m2 157.48 cm 98.6 [degF] 79 /min 125 mm[Hg] 74 mm[Hg] Kimberly Walls MA [facility] 4 12:39:32 Social History Question Answer Notes LastModified by Organizat ion Details LastModified Time Tobacco Smoking Status Former Smoker Kimberly Walls MA null, [facility] 02/23/2014 14:37:47 What Is Your Level Of Alcohol Consumption? Occasional Information not available 02/23/2014 Do You Or Have You Ever Used E-cigarettes Or Vape? Never Used Electronic Cigarettes Information not available 02/02/2020 Marital Status Single Informatio n not available 02/23/2014 What Was The Date Of Your Most Recent Tobacco Screening? 02/13/2024 [email or web address] Information not available 02/13/2024 Do You Or Have You Ever Used Smokeless Tobacco? Never Used Smokeless Tobacco Information not available 02/02/2020 How Many Years Have You Smoked Tobacco? 6 Information not available 02/23/2014 Do You Or Have You Ever Used Any Other Forms Of Tobacco Or Nicotine? No [email or web address] Information not available 09/07/2022 Sex: Unknown Functional Status None recorded. Mental Status None recorded. Family History Relationship Description Onset Age of this Age Resolved Age Notes LastModified by Organization Details LastModified Time Father No current problems or disability [email or web address] Not available 02/01 17:06:47 Mother No current problems or disability [email or web address] Not available 02/01 17:06:47 Medical History No medical history recorded. Gynecological HistoryNo gynecological history recorded. Obstetrics History GPAL:G 0 P 0 0 0 0 Immunizations Vaccine Type Date Status Note Provider Nam e and Address Organization Details Recorded Time Tdap 02/23/2015 completed Not Available [facility] 03/22/2019 02:44:17 Past Encounters Encounter ID Performer Location Encounter Start Date Encounter Closed Date Diagnosis/Indication Diagnosis SNOMED-CT Code Diagnosis ICD10 Code Diagnosis Note [id number] Yoselin Lemus [facility] ([id number]) [address] [place] [address] 02/23/2014 14:22:12 02/23/2014 15:00:17 Migraine [id number] Previously treated with Imitrex, I will increase her dose Patellofem oral stress syndrome 090859137 Recommend PT and ibuprogen Adult heal th examination [id number] TB testing to started today. [id number] Garry Lucero [facility] ([facility]) [address] [place] [address] 04/07/2014 12:09:09 04/07/2014 12:34:14 Migraine [id number] Improved with Imitrex and dose change, encourage to keep a headache diary. Patellofem oral stress syndrome 811736311 Improved with PT and ibuprofen [id number] Garry Lucero [facility] ([facility]) [address] [place] [address] 08/05/2014 16:42:09 08/05/2014 17:14:23 Migraine 76018511 Stable will refill imitrex with additional refills, encourage to keep a headache diary. Fluid leve l behind tympanic membrane 831962222 Recommend using sufafed and gentle message of the TMJ, left ear [id number] Dayana Vickers MA [facility] ([facility]) [address] [place] [address] 02/23/2015 14:01:51 02/23/2015 15:21:38 Adult health examination 424349034 Z00.01 Ms. Lzao is here for a work physical, no major concerns today. Tuberculos is screening 312313849 Z11.1 PPD placed today to be read on Thrusday. [id number] Cary Trujillo PA-C [facility] [address] [place] [address] 02/23/2015 18:16:18 02/23/2015 18:33:40 Active or passive immunization 168579031 Z23 [id number] Garry Lucero [facility] ([facility]) [address] [place] [address] 06/09/2015 14:03:10 06/09/2015 14:33:11 Patellofemoral stress syndrome 719676909 M22.2X9 Right knee pain, patient states that this slightly different from when she was treated for PFS [id number] Cary Trujillo PA-C [facility] ([facility]) [address] [place] [address] 03/08/2016 14:02:04 03/09/2016 10:49:17 Tinea corporis 05588528 B35.4 Likely tinea corporis, will treat with topical antifungal and monitor for improvemen t. Advised pt to keep clean and dry. RTC In 10 days if no improvemen t. D/C triamcinol one cream. Migraine 45373562 G43.90 9 Refill. [id number] Cary Trujillo PA-C [facility] ([facility]) [address] [place] [address] 08/23/2016 14:08:39 08/24/2016 09:43:08 Otitis externa 2890802 H60.92 Appears to be mild OE, will treat with antibiotic /steroid otic drops x 7 days. Use as directed and keep EAC clean and dry. Do not submerge head in water. RTC if no improvemen t in 10 days. [id number] [facility] ([facility]) [address] [place] [address] 03/01/2017 14:02:49 03/01/2017 16:30:41 Migraine 81312019 G43.909 Sumatripta n aborts migraines whenever needed, so will continue today. Patellofem oral stress syndrome 222412303 M22.2X9 Knee pain should be improving by now, but instead feels unstable with popping noises. Will order MRI for further informatio n and consider ortho referral vs PT. [id number] [facility]) [address] [facility] [place] [address] 11/30/2017 12:02:52 11/30/2017 14:48:02 Fatigue 82366421 R53.83 Likely due to lifestyle (poor diet, no exercise and over sleeping). We will check labs today, but I encouraged pt to limit sleep time to no more than 8 hours per night, eat a healthy diet and start regular exercise regimen. [id number] [facility] ([facility]) [address] [place] [address] 06/24/2018 15:38:07 06/25/2018 08:46:41 Folliculitis 49982197 L73.9 None present currently but we discussed proper hygeine measues and limited shaving to prevent ingrown hairs. Can apply topical antibiotic s and warm compress to folliculit is when present. Thoracic back pain 36865 8004 M54.6 Resolved, but can consider PT if Ileana is interested in the future. [id number] [facility] [address] [place] [address] 09/25/2018 15:02:24 09/30/2018 13:09:02 Seborrheic dermatitis of scalp 533922591 L21.0 Will start ketoconazo le shampoo, use as directed. Advised pt to RTC in 2-3 weeks if no improvemen t. Acne 09841758 L70.9 Will start with benzoyl peroxide since pt's acne is mild/moder ate. Could consider antibiotic s in the future if pt desires. [id number] [facility]) [address] [place] [address] 02/02/2020 16:25:19 02/03/2020 11:16:10 Migraine 90199727 G43.909 Sumatripta n aborts migraines whenever needed, so will continue today. Pt advised to call if migraines become more frequent or sumatripta n loses effectiven ess. Easy bruising 250021583 R58 Bruises are not overly worrisome as they are small and expected following her described injuries. Still, will check CBC, INR and CMP. Subclinica l hypothyroidism 00489989 E02 Due for TSH monitoring for subclinica l hypothyroi dism. [id number] [facility] ([facility]) [address] [place] [address] 09/07/2022 15:56:40 09/20/2022 08:47:42 Migraine 94021738 G43.909 Sumatripta n working well for migraine relief, but pt still having frequent migraines. Will start propranolo l for migraine prophylaxi s and follow up with pt in a few weeks. Pt advised to go to ER if red flag symptoms develop (thundercl ap headache, neuro deficits, etc). Can consider neuro referral or imaging if no improvemen t. I answered all pt questions and they expressed understand ing of the treatment plan. Pain of bi lateral knee joints [id number] 32429 M25.561 M25.562 Pt has chronic knee pain for several years. Will obtain XR and consider PT referral when report is available. I answered all pt questions, they expressed understand ing and are agreeable to this plan. [id number] [facility]) [address] [place] [address] 09/27/2022 16:05:04 09/28/2022 14:45:00 Mass of subcutaneous tissue of left lower leg 3024811304 0544122 R22.42 Unclear etiology but may be lipoma or hematoma. Advised pt that I cannot r/o other more serious findings without imaging and will proceed with US for further eval. I answered all pt questions, they expressed understand ing and are agreeable to this plan. Bilateral hip joint pain [id number] 8969254 M25.551 M25.552 Will obtain XR and start PT as planned. If no improvemen t, will refer to ortho. She expressed understand ing and agreed to this treatment plan. Overweight 074757049 E66 .3 [id number] Rebecca Ortiz, MACHINE TOOL OPERATOR-[facility] ([facility]) [address] [place] [address] 02/13/2024 12:07:04 03/03/2024 10:20:39 Allergic reaction to tattoo ink 923067058 T65.891A fu as needed w/ PCPrefrain from red ink to future tattoos, if considerin g suchreport to ED if s/s fail to resolve, abdominal pain, vaginal bleeding, CP, SOB, GARAY or the like occurs Body mass index 20-24 - normal 740817830 Z68.23 currently 6 weeks per pt Health Concerns Section Related Observation LastModified by Organization Detai ls LastModified Time None Recorded Concern Status LastModified by Organization Details LastModified Time None Recorded Advance Directives Directive None Recorded Payers Encounter Date Sequence Insurance Name Policy Number Policy Lara Covered Member ID Lara Member ID Guarantor Name 09/25/2018 1 [facility] PRIOR TO 09/02/2020 (MEDICAID REPLACEMENT - HMO) Ileana Burton [id number] Ileana Burton 02/02/2020 1 [facility] PRIOR TO 09/02/2020 (MEDICAID REPLACEMENT - HMO) Ileana Burton [id number] Ileana Burton 09/07/2022 1 [facility] - DOS ON OR AFTER 20 (MEDICAID REPLACEMENT - HMO) Ileana Burton [id number] Ileana Burton 09/27/2022 1 [facility] - DOS ON OR AFTER 20 (MEDICAID REPLACEMENT - HMO) Ileana Burton [id number] Ileana Burton 02/13/2024 1 [facility] - DOS ON OR AFTER 20 (MEDICAID REPLACEMENT - HMO) Ileana Burton [id number] Ileana Burton Notes Date Note Type Note Provider Name and Address Organization Details Recorded Time 09/25/2018 text/html Ileana is here today c/o dandruff and ongoing problems with acne. She has not tried any otc treatments thus far. Cary Trujillo PA-C Attn: [address] [place], [address], [facility] 09/30/2018 12:29:44 02/02/2020 text/html Ileana is here today for a routine check up. She has a couple small bruises on the BL LE from bumping into a small piece of furniture and would like to get labs done to see why she bruises so easily. She has no FH of bleeding or clotting disorders and denies any abnormal bleeding or hemarthrosis. She also needs her sumatriptan refilled, which works well for her migraines. Cary Trujillo PA-C Attn: [address] [facility], [place], [address], [facility] 02/03/2020 11:13:51 09/07/2022 text/html Ileana is here today for migraine f/u. She states sumatriptan works well for her migraines, but she still gets them several times per week. No associated aura, vision changes, slurred speech, thunderclap type headaches, waking from sleep due to headache or neurologic deficits. She would like to try a daily prophylactic medication today. She is also c/o chronic BL knee pain. States the pain is moderate and worse with activity. She has been taking tylenol for relief, but pain is still 7/10 in severity. Pain does not radiate and there is no erythema or warmth around the knees. She denies fever, SOB, wheezing, CP, GARAY, hemoptysis, abdominal pain, N/V/D/C or rash. Cary Trujillo PA-C Attn: Accounting[address] [facility], [place], [address], [facility] 2022 12:53:59 09/27/2022 text/html Ileana is here today c/o BL LE pain along the hips, thighs and knees. Pt states the pain began about 1-2 months ago. She now also has a lump in her left anterior thigh that is ttp. She denies any trauma but has been very active. She is taking OTC medication for pain and has an appt to start PT soon. No paresthesia/numbne ss in the LE. She would like to get a XR of the hips. She denies fever, SOB, wheezing, CP, GARAY, hemoptysis, abdominal pain, N/V/D/C or rash. Cary Trujillo PA-C Attn: Accounting,[address] [facility], [place], [address], [facility] 09/28/2022 09:16:44 02/13/2024 text/html Pt who reports s he is 6 weeks presents to clinic requesting treatment for pruritis to B lateral ankle tattoos (red inked areas only, while tattoo consists of use of red and black ink) for a few days after having them applied one week ago. She reports similar symptoms w/ prior tattoos consisting of red ink) while she states she used the same esthetician makeup artist. She reports trialing Aquaphor and Vaseline w/o relief. Pt denies nausea, vomiting, fever, chills, cough, CP, SOB, GARAY, diarrhea, angioedema, vaginal bleeding, abdominal pain/discomfort, constipation and dysuria. INA Enrique Attn: [address] [place], [address], [facility] 03/02/2024 14:56:36 OBGyn Episode No OBEpisode recorded.
--- OUTSIDE RECORDS SUMMARY | 2024-04-21 22:30 | XMS_ITS | Continuity of Care Document ---
Author Organization [facility] Address [address] [place] [address] Phone Care Team Providers Care Auto Inspection Specialist Name Role Phone Unavailable Unavailable Unavailable Advance Directives Directive Yes / No Effective Date File Name No Information Encounters Encounter Description Practice Location Reason(s) For Visit Diagnoses Date Provider Providers Copied on Encounter [facility], [address] [facility], [place], [place], [id number], [place] tel:[phone] [facility] No Information 2 No Information Referring Provider: ARNOLDO Barraza, [address], [place], [address]. tel:[phone] Family History Family Member Type Diagnosis Age At Onset No Information Payers Payer name Insurance type Covered libertarian ID Authoriza titara(s) [facility] [id number] Social History Type Description Quantity Date Captured Comments Sex Female Smoking Status No Information Chief Complaint And Reason For Visit No Information History Of Present Illness Encounter Date Complaint History Of Prese nt Illness No Information Instructions Date Instruction Additional Infor mation No Information Assessments Type Assessment Date No Information
[2024-04-21 22:31] VITALS: BP 125/80; PULSE 110; RESP 15; TEMP 36.8; O2SAT 100
--- OUTSIDE RECORDS SUMMARY | 2024-04-21 22:57 | XMS_ITS | Clinical Summary ---
Author Organization [employer] [facility] Address [address] [place] [address] Phone Care Team Providers Care Management Specialist Name Role Phone Unavailable Primary Care Provider Unavailabl e Medications No known medications Encounters Date Type Department Care Team Description 03/06/2024 4:12 PM EQUIPMENT ENGINEER - 03/06/2024 6:49 PM EQUIPMENT ENGINEER Hospital Encounter [facility] OB Triage [address] [place] [id number] Mine Montalvo MD Discharge Disposition: Home or [...] on file Legal Sex Female 6:11 AM EQUIPMENT ENGINEER Gender Identity Not on file Sexual Orientation Not on file Last Filed Vital Signs Vital Sign Reading Time Taken Comments Blood Pressure 122/70 03/06/2024 4:09 PM EQUIPMENT ENGINEER Pulse 103 03/06/2024 4:09 PM EQUIPMENT ENGINEER Temperature 36.9 C (98.4 F) 03/06/2024 4:09 PM EQUIPMENT ENGINEER Respiratory Rate 16 03/06/2024 4:09 PM EQUIPMENT ENGINEER Oxygen Saturation 100% 03/06/2024 4:09 PM EQUIPMENT ENGINEER Inhaled Oxygen Concentration - - Weight 58.5 kg (129 lb) 03/06/2024 4:09 PM EQUIPMENT ENGINEER Height 157.5 cm (5' 2 ) 03/06/2024 5:25 PM EQUIPMENT ENGINEER Body Mass Index 23.59 03/06/2024 4:09 PM EQUIPMENT ENGINEER Plan of Treatment Health Maintenance Due Date [...] POC , URINE Routine 03/06/2024 4:19 PM EQUIPMENT ENGINEER from Last 3 Months Results * (ABNORMAL) POC , URINE (03/06/2024 4:19 PM EQUIPMENT ENGINEER) HCG QUAL URINE Positive(A ) Negative 03/06/2024 4:19 PM EQUIPMENT ENGINEER [facility] Urine 03/06/2024 4:19 PM EQUIPMENT ENGINEER 03/06/2024 4:23 PM EQUIPMENT ENGINEER Narrative [facility] - 03/06/2024 4:19 PM EQUIPMENT ENGINEER Positive : Result is greater than or equal to 25 mIU/mL Negative: Result is less than 25 mIU/mL Invalid: Result is borderline or indeterminate,send to lab for serum test methodology. us Mine Montalvo MD POINT OF CARE TESTING Final Res ult [facility] CLIA# [id number] [address] [place] [address] from Last 3 Months Advance Directives For more information, please contact: [phone] * Full Code (Latest Code Status on File) Date Activated Date Inactivated Comments 03/06/2024 5:15 PM 03/06/2024 8:50 PM
--- OUTSIDE RECORDS SUMMARY | 2024-04-21 22:57 | XMS_ITS | Continuity of Care Document ---
Author Organization [facility] Address [address] [place] [address] Phone Care Team Providers Care Joy Operator Name Role Phone Unavailable Unavailable Unavailable Advance Directives Directive Yes / No Effective Date File Name No Information Encounters Encounter Description Practice Location Reason(s) For Visit Diagnoses Date Provider Providers Copied on Encounter [facility], [address] [facility], [place], [place], [id number], [place] tel:[phone] [facility] No Information 2 No Information Referring Provider: ARNOLDO Barraza, [address], [place], [address]. tel:[phone] Family History Family Member Type Diagnosis Age At Onset No Information Payers Payer name Insurance type Covered alliance party ID Authoriza titara(s) [facility] IN[facility]MN[facility] [id number] Social History Type Description Quantity Date Captured Comments Sex Female Smoking Status No Information Chief Complaint And Reason For Visit No Information History Of Present Illness Encounter Date Complaint History Of Prese nt Illness No Information Instructions Date Instruction Additional Infor mation No Information Assessments Type Assessment Date No Information
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
[2024-04-21] MEDS: ACETAMINOPHEN 500 MG TABLET 1000 MG PO (23:07)
[2024-04-21] MEDS: IBUPROFEN 400 MG TABLET 800 MG PO (23:09)
[2024-04-21 23:38] VITALS: BP 122/86; PULSE 77; RESP 15; O2SAT 100
== END 2024-04-21 23:40 | disposition home or self-care (01) ==
PROVIDERS: Emergency Provider Emergency Medicine; PCP Physician Assistant
DX: S52.572A Other intraarticular fracture of lower end of left radius, initial encounter for closed fracture (principal); S52.612A Displaced fracture of left ulna styloid process, initial encounter for closed fracture; M79.7 Fibromyalgia; Z87.891 Personal history of nicotine dependence; Y04.0XXA Assault by unarmed brawl or fight, initial encounter
CPT/HCPCS: 29125; 73110; 99284; A9270